=== PATIENT | female | born 1965 | race Caucasian/White ===

== ENCOUNTER 2018-11-26 15:59 | Inpatient (IN) | payer MEDICAID, OTHER ==
[~2018-11-26] VITALS: Ht 152.4 cm; Wt 61.2 kg
[~2018-11-26 15:59] MED LIST: GLIP5TAB13 PO; METF-1022 PO
[2018-11-26] MEDS ORDERED: ACETAMINOPHEN 325 MG TAB PO ONE (16:55)
[2018-11-26] MEDS ORDERED: ACETAMINOPHEN EXTRA STRENGTH 500 MG TAB ONE (16:59)
[2018-11-26] MEDS ORDERED: ACETAMINOPHEN EXTRA STRENGTH 500 MG TAB PO ONE (17:00)
[2018-11-26] MEDS ORDERED: NACL 0.9% 1,000 ML IV SCH ×2 (17:46→18:46)
[2018-11-26] MEDS ORDERED: KETOROLAC 30 MG/ML VIAL IVP ONE (17:50)
--- NOTE | 2018-11-26 17:51 | NUR ---
PATIENT PRESENTS TO ED WITH BROUGHT IN BY SONS C/O GENERAL MALAISE, HYPERGLYCEMIA, FEVER, BODYACHES X LAST NIGHT ADDS LOOSE STOOLS X 3 DAYS .; SKIN IS PINK/WARM/DRY; AAOX4 WITH EVEN AND STEADY GAIT; LUNGS CLEAR BL; HR EVEN AND REGULAR; PT DENIES ANY, CP, SOB, OR COUGH AT THIS TIME; PATIENT STATES PAIN OF 8/10 AT THIS TIME; VSS; PATIENT POSITIONED FOR COMFORT; HOB ELEVATED; BEDRAILS UP X2; BED DOWN. ER MD MADE AWARE OF PT STATUS.
--- NOTE | 2018-11-26 17:52 | NUR ---
X-RAY AT BEDSIDE
[2018-11-26 17:58] LABS: BILIRUBIN,URINE NEGATIVE (NEGATIVE); BLOOD, URINE 2+ (NEGATIVE); COLOR,URINE YELLOW (YELLOW); LEUKOCYTE ESTERASE ,URINE TRACE (NEGATIVE); NITRITE, URINE NEGATIVE (NEGATIVE); UGLUCOSE 3+ (NEGATIVE)
[2018-11-26 18:04] LABS: APPEARANCE,URINE HAZY (CLEAR)
[2018-11-26 18:06] LABS: RBC,URINE 3-10 (FEW) /HPF (0-5); WBC,URINE 80-100 /HPF (0-5)
[2018-11-26 18:08] LABS: BASOPHILS % (AUTO) 0.5 % (0.0-2.0); EOSINOPHILS % (AUTO) 0.3 % (0.0-4.0); HEMATOCRIT 33.7 % (36-48); HEMOGLOBIN 11.2 g/dL (12.0-16.0); LYMPHOCYTES # (AUTO) 0.7 K/uL (2.5-16.5); LYMPHOCYTES % (AUTO) 7.2 % (20.5-51.1); MEAN CORPUSCULAR HEMOGLOBIN 29 pg (27-31); MEAN CORPUSCULAR HGB CONC 33 g/dL (33-37); MEAN CORPUSCULAR VOLUME 88.4 fL (80-94); MONOCYTES # (AUTO) 0.5 K/uL (0.8-1.0); MONOCYTES % (AUTO) 5.6 % (1.7-9.3); NEUTROPHILS # (AUTO) 8.3 K/uL (1.8-7.7); NEUTROPHILS % (AUTO) 86.4 % (42.2-75.2); PLATELET COUNT (AUTO) 172 K/uL (140-450); RED BLOOD CELL COUNT(AUTO) 3.81 MIL/uL (4.20-5.40); RED CELL DISTRIBUTION WIDTH 13.7 % (11.6-13.7); WHITE BLOOD COUNT (AUTO) 9.6 K/uL (4.8-10.8)
[2018-11-26] MEDS ORDERED: cefTRIAXone 1,000 MG in LIDOCAINE MPF 1% - 5 mL VIAL 2.1 ML IM ONE (18:15)
[2018-11-26 18:39] LABS: ALBUMIN 3.1 g/dL (3.4-5.0); ANION GAP 13.9 (8-16); CARBON DIOXIDE 23.3 mmol/L (21-32); CREATININE 1.4 mg/dL (0.6-1.3); POTASSIUM 4.2 mmol/L (3.5-5.1); TOTAL BILIRUBIN 0.6 mg/dL (0.0-1.0)
[2018-11-26] MEDS ORDERED: ALBUTEROL 0.083% 2.5 MG/3 ML NEBU INH PRN (18:50)
[2018-11-26] MEDS ORDERED: DEXTROSE 50% 50 ML SYR IVP PRN (18:50)
[2018-11-26] MEDS ORDERED: MORPHINE SULFATE 2 MG/ML SYR IVP PRN (18:50)
[2018-11-26] MEDS ORDERED: OSELTAMIVIR PHOSPHATE 75 MG CAP PO ONE (18:50)
[2018-11-26] MEDS ORDERED: INSULIN LANTUS 100 UNITS/ML 10 ML VIAL SUBQ ONE (18:55)
[2018-11-26] MEDS: NACL 0.9% 1,000 ML IV SCH (19:10)
--- NOTE | 2018-11-26 19:15 | NUR ---
Patient will be admitted to care of Dr Rogers. Admited to MST. Will go to room 114. Belongings list completed. Report to DAMIAN ROME.
[2018-11-26 19:30] VITALS: BP 98/80
[2018-11-26] MEDS ORDERED: NACL 0.9% 1,000 ML IV ONE (19:30)
[2018-11-26] MEDS ORDERED: INSULIN REGULAR, HUMAN 100 UNIT/ML VIAL IVP ONE (19:30)
--- NOTE | 2018-11-26 19:30 | NUR ---
RECEIVED REPORT FROM WILD FERREIRA, PATIENT AMBULATORY, SKIN INTACT, LUNG SOUNDS CLEAR, AAOX4, PRIMARILY [facility] SPEAKING. SON AT BEDSIDE, IV IN LEFT FA 18 G SL. MRSA SCREEN COLLECTED AND SENT TO LAB, V/S TAKEN NOTED BP 98/80 HR 90. EXPLAINED OF NEEDED URINE SAMPLE FOR NA LEVEL, PLACED CONTAINER AT BEDSIDE. CALL LIGHT WITHIN REACH, EXPLAINED PLAN OF CARE, WILL CALL DR FOR ORDERS REGARDING BG 506.
--- NOTE | 2018-11-26 19:35 | NUR ---
CALLED ER SPOKE WITH JESSICA, ASKED IF PATIENT GOT INSULIN FOR BG 507. THEY STATED NO PATIENT DID NOT GET ANYTHING FOR BG.
--- NOTE | 2018-11-26 20:00 | NUR ---
BG 472 GAVE 10 UNITS LANTUS AND 10 UNITS REGULAR INSULIN.
[2018-11-26] MEDS ORDERED: cefTRIAXone 1,000 MG VIAL ONE (20:36)
[2018-11-26] MEDS: BLOOD GLUCOSE MONITORING 1 DEV DEV FS SCH (20:49)
--- NOTE | 2018-11-26 20:50 | NUR ---
STARTED IVF NS AT 75 ML/HR AND ROCEPHIN. BLOOD GLUCOSE 453 WILL CALL FOR ORDERS.
[2018-11-26 21:42] LABS: ANION GAP 13.1 (8-16); CARBON DIOXIDE 22.5 mmol/L (21-32); CREATININE 1.3 mg/dL (0.6-1.3); POTASSIUM 3.6 mmol/L (3.5-5.1)
--- NOTE | 2018-11-26 21:45 | NUR ---
CALL FROM LAB BG 463 WILL NOTIFY FOR ORDERS.
--- NOTE | 2018-11-26 22:01 | NUR ---
CALLED DR HOOD CALL BACK FROM DR GUNDERSON NOTIFIED OF BG 453, ORDERS FOR 10 U LANTUS AND 6 U REGULAR INSULIN, PUT IN ORDERS, RECHECKED BG 395 GAVE MEDICATIONS ACCORDING TO MD ORDER.
[2018-11-26] MEDS ORDERED: INSULIN LANTUS 100 UNITS/ML 10 ML VIAL SUBQ SCH (22:30)
[2018-11-26] MEDS ORDERED: INSULIN REGULAR, HUMAN 100 UNIT/ML VIAL SUBQ SCH (22:30)
--- NOTE | 2018-11-26 22:39 | NUR ---
REASSESSED BG 366. WILL CONTINUE TO MONITOR.
--- NOTE | 2018-11-26 22:40 | NUR ---
ADMISSION QUESTIONS COMPLETED, USED WAREHOUSE ASSISTANT ALEX #[id number].
[2018-11-27] VITALS: BP 105/86
--- NOTE | 2018-11-27 00:30 | NUR ---
V/S TAKEN BP 105/86 WILL CONTINUE TO MONITOR.
--- NOTE | 2018-11-27 03:15 | NUR ---
PATIENT SLEEPING IN BED NO SIGNS OF DISTRESS, WILL CONTINUE TO MONITOR.
[2018-11-27 03:48] VITALS: BP 110/65
--- NOTE | 2018-11-27 04:26 | NUR ---
PATIENT VOMITED X [address] ON MONITOR AT 138, CALLED DR GUNDERSON ORDER FOR ZOFRAN AND 1 L NS FLUID BOLUS.
[2018-11-27] MEDS ORDERED: NACL 0.9% 1,000 ML IV SCH (04:30)
[2018-11-27] MEDS ORDERED: ONDANSETRON 4 MG/2 ML VIAL IVP PRN ×2 (04:30→04:45)
[2018-11-27] MEDS ORDERED: ONDANSETRON 4 MG/2 ML VIAL ONE (04:43)
--- NOTE | 2018-11-27 04:46 | NUR ---
STARTED IVF BOLUS OF NS AND GAVE ZOFRAN. REMINDED PATIENT OF NEEDED URINE SAMPLE. HAT IN BATHROOM.
[2018-11-27] MEDS: INSULIN LISPRO SLIDING SCALE 100 UNITS/ML VIAL SUBQ PRN ×3 (05:32→21:07)
[2018-11-27 06:37] LABS: BASOPHILS % (AUTO) 0.4 % (0.0-2.0); EOSINOPHILS # (AUTO) 0.1 K/uL (0-0.4); EOSINOPHILS % (AUTO) 0.9 % (0.0-4.0); HEMATOCRIT 31.6 % (36-48); HEMOGLOBIN 10.7 g/dL (12.0-16.0); LYMPHOCYTES # (AUTO) 0.8 K/uL (2.5-16.5); LYMPHOCYTES % (AUTO) 9.6 % (20.5-51.1); MEAN CORPUSCULAR HEMOGLOBIN 30 pg (27-31); MEAN CORPUSCULAR HGB CONC 34 g/dL (33-37); MEAN CORPUSCULAR VOLUME 88.3 fL (80-94); MONOCYTES # (AUTO) 0.6 K/uL (0.8-1.0); MONOCYTES % (AUTO) 6.7 % (1.7-9.3); NEUTROPHILS % (AUTO) 82.4 % (42.2-75.2); PLATELET COUNT (AUTO) 148 K/uL (140-450); RED BLOOD CELL COUNT(AUTO) 3.57 MIL/uL (4.20-5.40); WHITE BLOOD COUNT (AUTO) 8.5 K/uL (4.8-10.8)
[2018-11-27] MEDS: BLOOD GLUCOSE MONITORING 1 DEV DEV FS SCH ×4 (06:40→21:03)
--- NOTE | 2018-11-27 06:41 | NUR ---
BLOOD GLUCOSE 260 GAVE 4 UNITS
[2018-11-27 07:18] LABS: ALBUMIN 2.8 g/dL (3.4-5.0); ANION GAP 14.8 (8-16); CARBON DIOXIDE 21.4 mmol/L (21-32); CREATININE 0.9 mg/dL (0.6-1.3); MAGNESIUM 1.3 mg/dL (1.8-2.4); POTASSIUM 4.2 mmol/L (3.5-5.1); TOTAL BILIRUBIN 0.5 mg/dL (0.0-1.0)
--- NOTE | 2018-11-27 07:36 | NUR ---
ENDORSED PATIENT TO DAY SHIFT NURSE, PATIENT STABLE.
[2018-11-27 08:00] VITALS: BP 124/60
--- NOTE | 2018-11-27 08:12 | NUR ---
NOTIFIED DR HOOD ABOUT PATIENT'S FEVER. ORDERS RECEIVED
[2018-11-27] MEDS: NACL 0.9% 1,000 ML IV SCH ×2 (08:30→23:51)
--- NOTE | 2018-11-27 08:39 | NUR ---
PATIENT HAS BEEN SCREENED AND CATEGORIZED HIGH NUTRITION RISK. PATIENT WILL BE SEEN WITHIN 1-2 DAYS OF ADMISSION. 11/27/18-11/28/[address]
[2018-11-27] MEDS: ACETAMINOPHEN 325 MG TAB PO PRN (08:45)
[2018-11-27] MEDS ORDERED: ACETAMINOPHEN 325 MG TAB ONE (08:48)
[2018-11-27] MEDS: ENOXAPARIN 40 MG/0.4 ML SYR SUBQ SCH (08:49)
[2018-11-27] MEDS ORDERED: MAG SULF 2000 MG/WATER PREMIX 50 ML IV SCH (09:00)
--- NOTE | 2018-11-27 09:22 | NUR ---
CM NOTE PER MACY OF [facility] PH# [phone], DR. [facility] WILL NOT BE BACK IN THE CLINIC UNTIL LATE NEXT WEEK AND THE PATIENT IS BEING SCHEDULED TO BE SEEN ON THE EARLIEST AVAILABLE SCHEDULE FOR OUTPATIENT FOLLOW UP AT THIS TIME WHICH IS ON JANUARY 29, 2019 3:30 PM AT THE CLINIC AT [address] [place] [address] [place] [address]. I INFORMED MACY THAT THIS IS AN OUTPATIENT FOLLOW UP AFTER A HOSPITAL ADMISSION. PER MACY, SHE WILL ASK DR. KIRBY NEXT WEEK IF HE COULD SEE THE PATIENT ON AN EARLIER SCHEDULE AND IF THIS IS POSSIBLE, SHE WILL CALL THE PATIENT TO INFORM HER OF THE EARLIER SCHEDULE. I GAVE THE PATIENT A COPY OF HER OUTPATIENT FOLLOW UP SCHEDULE.
--- NOTE | 2018-11-27 10:30 | NUR ---
MG RIDER ADMINISTERED DURING DOWNTIME. ADMINISTRATION RECORDED ON DOWN TIME SHEET
[2018-11-27 12:00] VITALS: BP 104/53
--- NOTE | 2018-11-27 16:00 | NUR ---
PT AWAKE IN BED, WATCHING TELEVISION. NO S/S OF DISTRESS NOTED
[2018-11-27 16:54] VITALS: BP 140/69
--- NOTE | 2018-11-27 19:30 | NUR ---
PT REPORT GIVEN AT BEDSIDE. PATIENT ENDORSED IN STABLE CONDITION
--- NOTE | 2018-11-27 19:55 | NUR ---
RECEIVED PATIENT FROM DAY SHIFT NURSE FOR CONTINUITY OF CARE. PATIENT IS AWAKE, ALERT, RESPIRATION EVEN UNLABORED ON ROOM AIR. DENIES PAIN. SKIN IS WARM AND DRY. IV PATENT AND INTACT. PLAN OF CARE WAS DISCUSSED. ALL SAFETY MEASURE IN PLACE. DROPLET PRECAUTION IN PLACE AND MAINTAIN. CALL LIGHT WITHIN REACH. BED IS AT LOW POSITION. WILL CONTINUE TO MONITOR.
[2018-11-27 20:00] VITALS: BP 152/74
--- NOTE | 2018-11-27 20:00 | NUR ---
PATIENT IS AWAKE, ALERT, RESPIRATION EVEN UNLABORED ON ROOM AIR. INITIAL ASSESSMENT DONE. VITALS STABLE. MEDS WERE GIVEN PER ORDER. CALL LIGHT WITHIN REACH. WILL CONTINUE TO MONITOR.
--- NOTE | 2018-11-27 21:45 | NUR ---
PATIENT WAS AWAKE, ALERT, RESPIRATION EVEN UNLABORED ON ROOM AIR. COMPLAINED OF NAUSEA. PRN ZOFRAN ADMINISTERED. WILL CONTINUE TO MONITOR.
--- NOTE | 2018-11-27 22:30 | NUR ---
REASSESSED PATIENT NO MORE COMPLAINED OF NAUSEA PRN ZOFRAN MED WAS EFFECTIVE. WILL CONTINUE TO MONITOR.
[2018-11-28] VITALS: BP 108/50
--- NOTE | 2018-11-28 01:00 | NUR ---
PATIENT HAD A FEVER OF 101.[address] RECHECKED TEMPERATURE 101. ADMINISTERED PRN TYLENOL. WILL CONTINUE TO MONITOR.
[2018-11-28] MEDS: ACETAMINOPHEN 325 MG TAB PO PRN (01:05)
--- NOTE | 2018-11-28 02:00 | NUR ---
RECHECKED PATIENT TEMPERATURE NOW IS AT 98.1. WILL CONTINUE TO MONITOR.
--- NOTE | 2018-11-28 03:30 | NUR ---
PATIENT SLEEPING COMFORTABLY RESPIRATION EVEN UNLABORED ON ROOM AIR. NO FEVER. WILL CONTINUE TO MONITOR
[2018-11-28 04:00] VITALS: BP 120/67
--- NOTE | 2018-11-28 05:00 | NUR ---
PATIENT SLEEPING NO SIGNS OF DISTRESS. WILL CONTINUE TO MONITOR
[2018-11-28] MEDS: INSULIN LISPRO SLIDING SCALE 100 UNITS/ML VIAL SUBQ PRN (06:33)
[2018-11-28] MEDS: BLOOD GLUCOSE MONITORING 1 DEV DEV FS SCH (06:34)
--- NOTE | 2018-11-28 07:28 | NUR ---
ENDORSED PATIENT TO DAY SHIFT NURSE FOR CONTINUITY OF CARE. PATIENT IS STABLE AT THIS TIME.
--- NOTE | 2018-11-28 07:28 | NUR ---
RECEIVED PATIENT REPORT AT BEDSIDE. PATIENT IS AWAKE, ALERT AND ORIENTED. NO S/S OF DISTRESS. PT ON ROOM AIR NO SOB. PT ON TELE MONITORING. BED LOWERED WITH CALL LIGHT WITHIN REACH. WILL CONTINUE TO MONITOR
[2018-11-28 07:34] VITALS: BP 124/64
[2018-11-28 08:14] LABS: ANION GAP 11.1 (8-16); CARBON DIOXIDE 26.6 mmol/L (21-32); CREATININE 0.8 mg/dL (0.6-1.3); POTASSIUM 3.7 mmol/L (3.5-5.1)
[2018-11-28] MEDS: ENOXAPARIN 40 MG/0.4 ML SYR SUBQ SCH (09:49)
[2018-11-28] MEDS ORDERED: TAM75 PO (09:59)
[2018-11-28] MEDS ORDERED: CEPH250C16 PO (10:10)
[2018-11-28] MEDS: NACL 0.9% 1,000 ML IV SCH (11:10)
[2018-11-28 12:00] VITALS: BP 141/77
--- NOTE | 2018-11-28 12:00 | NUR ---
PATIENT DISCHARGED TO HOME. DISCHARGE INSTRUCTIONS AND DISCHARGE PRESCRIPTIONS GIVEN. BUX PHONE USED ID#[id number]. PATIENT VERBALIZED UNDERSTANDING. IV LINE DISCONTINUED. PATIENT LEFT WITH ALL HIS BELONGINGS AND DISCHARGE PAPERS. PATIENT LEFT IN STABLE CONDITION
[2018-11-28] MEDS ORDERED: OSELTAMIVIR PHOSPHATE 75 MG CAP PO SCH (21:00)
== END 2018-11-28 12:00 | disposition home or self-care (01) | DRG 463 ==
LOC: MED 15:59 → MTU 18:51
PROVIDERS: ADMIT Hospitalist; ATTEND Hospitalist
DX: N39.0 Urinary tract infection, site not specified (principal); E11.65 Type 2 diabetes mellitus with hyperglycemia; E87.1 Hypo-osmolality and hyponatremia; E44.1 Mild protein-calorie malnutrition; E83.42 Hypomagnesemia; J11.1 Influenza due to unidentified influenza virus with other respiratory manifestations; Z79.84 Long term (current) use of oral hypoglycemic drugs; Z98.42 Cataract extraction status, left eye; Z98.41 Cataract extraction status, right eye
CPT/HCPCS: 36415; 71045; 80048; 80053; 81001; 82948; 83605; 83735; 83930; 85025; 87040; 87081; 87086; 87186; 87804; 93005; 96361; 96372; 96374; 99285; J0696; J1650; J1815; J1885; J2001; J2405; J3475; J7030; J7060; Q0092

== ENCOUNTER 2019-02-03 18:48 | Inpatient (IN) | payer OTHER ==
[~2019-02-03] VITALS: Ht 147.3 cm; Wt 59.4 kg
[~2019-02-03 18:48] MED LIST changes: +CEPH250C16 PO; +TAM75 PO
[2019-02-03 19:03] VITALS: BP 113/55
--- NOTE | 2019-02-03 19:10 | NUR ---
BIB SON. PT AAO X4. PER SON, PT HAS N/V/D SINCE LAST NIGHT. STATES SHE HAS NOT EATEN SINCE LAST NIGHT. HAS VOMITED 2 TIMES AND HAD 3 EPISODES OF DIAHRREA TODAY. GENERALIZED WEAKNESS. PT DENIES DIZZINESS, SOB. HOB UP BED SIDE RAILS UP X1. ON LOW BED POSITION, LOCKED. ER MADE AWARE OF PT STATUS.
[2019-02-03] MEDS ORDERED: KETOROLAC 30 MG/ML VIAL IVP ONE (19:30)
[2019-02-03] MEDS ORDERED: NACL 0.9% 1,000 ML IV ONE ×2 (19:30→21:00)
[2019-02-03] MEDS ORDERED: ONDANSETRON 4 MG/2 ML VIAL IVP ONE (19:30)
--- NOTE | 2019-02-03 19:31 | NUR ---
Alie puentes in ED - 02/03/[address] at [address] MUSTAFA AT BEDSIDE FOR PT EVALUATION
--- NOTE | 2019-02-03 19:31 | NUR ---
DR DE LA CRUZ AT BEDSIDE FOR PT EVALUATION
[2019-02-03 19:53] LABS: BASOPHILS # (AUTO) 0.1 K/uL (0.00-0.22); BASOPHILS % (AUTO) 0.7 % (0.0-2.0); EOSINOPHILS % (AUTO) 0.1 % (0.0-4.0); HEMATOCRIT 31.6 % (36-48); HEMOGLOBIN 10.7 g/dL (12.0-16.0); LYMPHOCYTES # (AUTO) 0.7 K/uL (2.5-16.5); LYMPHOCYTES % (AUTO) 8.4 % (20.5-51.1); MEAN CORPUSCULAR HEMOGLOBIN 29 pg (27-31); MEAN CORPUSCULAR HGB CONC 34 g/dL (33-37); MEAN CORPUSCULAR VOLUME 86.1 fL (80-94); MONOCYTES # (AUTO) 0.6 K/uL (0.8-1.0); MONOCYTES % (AUTO) 6.8 % (1.7-9.3); NEUTROPHILS # (AUTO) 7.2 K/uL (1.8-7.7); PLATELET COUNT (AUTO) 111 K/uL (140-450); RED BLOOD CELL COUNT(AUTO) 3.67 MIL/uL (4.20-5.40); RED CELL DISTRIBUTION WIDTH 13.6 % (11.6-13.7); WHITE BLOOD COUNT (AUTO) 8.5 K/uL (4.8-10.8)
[2019-02-03 20:03] LABS: ANION GAP 15.1 (8-16); CARBON DIOXIDE 24.9 mmol/L (21-32); CREATININE 1.1 mg/dL (0.6-1.3)
[2019-02-03 20:08] LABS: ALBUMIN 3.1 g/dL (3.4-5.0); TOTAL BILIRUBIN 1.2 mg/dL (0.0-1.0)
--- NOTE | 2019-02-03 20:16 | NUR ---
PT TAKEN TO CT VIA BED BY COMMUNICATIONS AGENT
--- NOTE | 2019-02-03 20:28 | NUR ---
PT TAKEN BACK FROM CT VIA BED BY TERMITE TREATER.
[2019-02-03 20:43] LABS: APPEARANCE,URINE CLEAR (CLEAR); BILIRUBIN,URINE NEGATIVE (NEGATIVE); BLOOD, URINE 2+ (NEGATIVE); COLOR,URINE YELLOW (YELLOW); LEUKOCYTE ESTERASE ,URINE TRACE (NEGATIVE); NITRITE, URINE NEGATIVE (NEGATIVE); UGLUCOSE 3+ (NEGATIVE)
[2019-02-03 20:58] LABS: WBC,URINE 80-100 /HPF (0-5)
[2019-02-03] MEDS ORDERED: cefTRIAXone 1,000 MG VIAL ONE (21:41)
[2019-02-03] MEDS ORDERED: HYDROcodone/APAP 5/325 MG 1 TAB TAB PO PRN (22:10)
[2019-02-03] MEDS ORDERED: DEXTROSE 50% 50 ML SYR IVP PRN (22:10)
[2019-02-03] MEDS ORDERED: MORPHINE SULFATE 4 MG/ML SYR IVP PRN (22:10)
--- NOTE | 2019-02-03 22:35 | NUR ---
RECEIVED PT FROM ER VIA [place], AWAKE ALERT ORIENTED X 4. ABLE TO AMBULATE FROM BED TO [facility], STEADY GAIT. PT W/ IVF SITE G 20 LEFT AC , PATENT AND INTACT, NO IV RUNNING AT THIS TIME. MRSA SWAB DONE. SKIN ASSESSMENT DONE. PLACED IN LOW BED POSITION, CALL LIGHT W/IN EASY REACH ORIENTED TO UNIT. WILL CONTINUE TO MONITOR
--- NOTE | 2019-02-03 22:38 | NUR ---
Patient will be admitted to care of DR MULLER. Admited to MED/SURG. Will go to room 120-B. Belongings list completed. Report to WILD HEARD.
[2019-02-03] MEDS: NACL 0.9% 1,000 ML IV SCH (23:54)
--- NOTE | 2019-02-04 | NUR ---
CALLED ANALYST HIRAM QUINTANILLA TO INTERPRET TO PATIENT # [phone]. FOR HISTORY AND PHYSICAL ASSESSMENT AND INTERVIEW. PT COOPERATIVE.
--- NOTE | 2019-02-04 00:50 | NUR ---
ORDERS CARRIED OUT FOR ADMISSION. PT ASLEEP IN BED RIGHT NOW, PLACED IN A COMFORTABLE POSITION
--- NOTE | 2019-02-04 01:41 | NUR ---
PT VOMITED 1 X WILL CONTINUE TO MONITOR. WILL GIVE ZOFRAN
[2019-02-04] MEDS: ONDANSETRON 4 MG/2 ML VIAL IVP PRN ×2 (01:43→22:07)
[2019-02-04] MEDS: ACETAMINOPHEN 325 MG TAB PO PRN ×3 (01:52→18:52)
--- NOTE | 2019-02-04 02:00 | NUR ---
PT AFEBRILE T= 103.4 ADMINISTERED TYLENOL PRN FOR FEVER Addendum: 02/04/19 at 0207 by Claire Jensen RN PT FEBRILE 103. 4 INCREASED TEMP
[2019-02-04 04:00] VITALS: BP 101/48
[2019-02-04] MEDS: BLOOD GLUCOSE MONITORING 1 DEV DEV FS SCH ×4 (05:35→21:00)
[2019-02-04] MEDS: INSULIN LISPRO SLIDING SCALE 100 UNITS/ML VIAL SUBQ PRN ×4 (06:23→22:02)
[2019-02-04 06:49] LABS: BASOPHILS % (AUTO) 0.4 % (0.0-2.0); HEMATOCRIT 28.7 % (36-48); HEMOGLOBIN 9.6 g/dL (12.0-16.0); LYMPHOCYTES # (AUTO) 0.5 K/uL (2.5-16.5); MEAN CORPUSCULAR HEMOGLOBIN 29 pg (27-31); MEAN CORPUSCULAR HGB CONC 34 g/dL (33-37); MONOCYTES # (AUTO) 0.3 K/uL (0.8-1.0); MONOCYTES % (AUTO) 5.2 % (1.7-9.3); NEUTROPHILS # (AUTO) 5.7 K/uL (1.8-7.7); NEUTROPHILS % (AUTO) 86.4 % (42.2-75.2); PLATELET COUNT (AUTO) 82 K/uL (140-450); RED CELL DISTRIBUTION WIDTH 13.9 % (11.6-13.7); WHITE BLOOD COUNT (AUTO) 6.6 K/uL (4.8-10.8)
--- NOTE | 2019-02-04 07:03 | NUR ---
99.7 T AFEBRILE. NO VOMITING NOTED; NO CHILLS , NO NAUSEA. WILL ENDORSE TO NEXT SHIFT FOR CONTINUITY OF CARE
[2019-02-04 07:46] LABS: ANION GAP 11.2 (8-16); CARBON DIOXIDE 22.5 mmol/L (21-32); POTASSIUM 3.7 mmol/L (3.5-5.1)
[2019-02-04 07:48] LABS: MAGNESIUM 1.3 mg/dL (1.8-2.4); PHOSPHORUS 2.6 mg/dL (2.5-4.9)
[2019-02-04 08:00] VITALS: BP 105/53
[2019-02-04] MEDS ORDERED: glipiZIDE 5 MG TAB PO SCH (08:00)
--- NOTE | 2019-02-04 08:33 | NUR ---
PATIENT HAS BEEN SCREENED AND CATEGORIZED HIGH NUTRITION RISK. PATIENT WILL BE SEEN WITHIN 1-2 DAYS OF ADMISSION. 02/04/19-02/05/[address]
[2019-02-04] MEDS ORDERED: GLIPIZIDE 5 MG PO SCH (09:00)
[2019-02-04] MEDS ORDERED: METFORMIN HCL 1000 MG PO SCH (09:00)
[2019-02-04] MEDS: ENOXAPARIN 40 MG/0.4 ML SYR SUBQ SCH (09:00)
[2019-02-04] MEDS: metFORMIN 500 MG TAB PO SCH ×2 (09:17→18:17)
--- NOTE | 2019-02-04 09:27 | NUR ---
HELD ENOXAPARIN PLATELETS 82
--- NOTE | 2019-02-04 10:40 | NUR ---
FEVER 101.3 TYLENOL GIVEN AT THIS TIME
[2019-02-04] MEDS: NACL 0.9% 1,000 ML IV SCH ×2 (10:44→18:18)
--- NOTE | 2019-02-04 11:30 | NUR ---
VERBAL ORDER DR. NEWELL CHEM7, CBC IN AM 02/05/2019
--- NOTE | 2019-02-04 13:11 | NUR ---
PT LYING IN BED SLEEPING. RESPIRATIONS EVEN AND UNLABORED. BED IN LOW POSITION. CALL LIGHT AT BEDSIDE. WILL CONTINUE TO MONITOR.
--- NOTE | 2019-02-04 14:29 | NUR ---
CALLED OFFICE OF DR HINTON [phone] SPOKE TO HARLEY, FOLLOW UP APPOINTMENT MADE ON 02/28/19 AT 1130AM @ [phone] [facility] [id number] [facility], [phone]. COPY OF APPOINTMENT GIVEN TO PATIENT. PRIMARY NURSE ALEX ROME MADE AWARE.
--- NOTE | 2019-02-04 14:50 | NUR ---
02/04/19 RD INITIAL ASSESSMENT COMPLETED PLEASE REFER TO NUTRITION ASSESSMENT UNDER CARE ACTIVITY FOR ESTIMATED NUTRITIONAL NEEDS. 1. CONTINUE CCHO 60 GM DIET TOLERATED 2. RD PROVIDED NUTRITION EDUCATION ON CARBOHYDRATE COUNTING 3. RD TO FOLLOW-UP 3-5 DAYS, MODERATE RISK GRISELDA ALLEN, RD
[2019-02-04 16:00] VITALS: BP 129/79
--- NOTE | 2019-02-04 16:24 | NUR ---
PT LYING IN BED WITH FAMILY AT BEDSIDE. RESPIRATIONS EVEN AND UNLABORED. BED IN LOW POSITION. CALL LIGHT AT BEDSIDE. WILL CONTINUE TO MONITOR.
--- NOTE | 2019-02-04 18:20 | NUR ---
FEVER 101.3 TYLENOL WAS GIVEN AT THIS TIME
--- NOTE | 2019-02-04 19:25 | NUR ---
GAVE REPORT TO BILLING ADJUDICATOR NURSE FOR CONTINUITY OF CARE. PT IN STABLE CONDITION.
[2019-02-04 20:00] VITALS: BP 110/55
--- NOTE | 2019-02-04 20:00 | NUR ---
Patient's Plan of Care was discussed and reviewed with RANCH SUPERVISOR: Olya PRICE
[2019-02-04 21:34] LABS: ANION GAP 11.3 (8-16); CARBON DIOXIDE 25.4 mmol/L (21-32); CREATININE 0.9 mg/dL (0.6-1.3); POTASSIUM 3.7 mmol/L (3.5-5.1)
--- NOTE | 2019-02-04 22:07 | NUR ---
NAUSEATED, MEDICATED WITH ZOFRAN 4 MG. IVP BY WILD LYONS. SON AT THE BEDSIDE FOR SHORT VISIT.
--- NOTE | 2019-02-04 23:07 | NUR ---
NO NAUSEA/VOMITING NOTED. RESTING IN BED COMFORTABLY.
[2019-02-05] VITALS: BP 112/54
[2019-02-05 04:00] VITALS: BP 108/56
[2019-02-05] MEDS: NACL 0.9% 1,000 ML IV SCH (04:08)
[2019-02-05] MEDS: BLOOD GLUCOSE MONITORING 1 DEV DEV FS SCH ×2 (06:13→11:30)
[2019-02-05] MEDS: INSULIN LISPRO SLIDING SCALE 100 UNITS/ML VIAL SUBQ PRN ×2 (06:15→13:09)
[2019-02-05] MEDS: ACETAMINOPHEN 325 MG TAB PO PRN (06:21)
--- NOTE | 2019-02-05 06:21 | NUR ---
WITH FEVER - 101.2, MEDICATED WITH TYLENOL, COOLING MEASURES GIVEN.
[2019-02-05] MEDS ORDERED: glipiZIDE 5 MG TAB PO SCH (06:30)
[2019-02-05 06:49] LABS: BASOPHILS % (AUTO) 0.4 % (0.0-2.0); EOSINOPHILS % (AUTO) 0.3 % (0.0-4.0); HEMOGLOBIN 9.1 g/dL (12.0-16.0); LYMPHOCYTES % (AUTO) 14.5 % (20.5-51.1); MEAN CORPUSCULAR HEMOGLOBIN 29 pg (27-31); MEAN CORPUSCULAR HGB CONC 34 g/dL (33-37); MEAN CORPUSCULAR VOLUME 86.7 fL (80-94); MONOCYTES # (AUTO) 0.6 K/uL (0.8-1.0); MONOCYTES % (AUTO) 8.5 % (1.7-9.3); NEUTROPHILS # (AUTO) 5.1 K/uL (1.8-7.7); NEUTROPHILS % (AUTO) 76.3 % (42.2-75.2); PLATELET COUNT (AUTO) 77 K/uL (140-450); RED BLOOD CELL COUNT(AUTO) 3.11 MIL/uL (4.20-5.40); RED CELL DISTRIBUTION WIDTH 13.5 % (11.6-13.7); WHITE BLOOD COUNT (AUTO) 6.7 K/uL (4.8-10.8)
[2019-02-05 07:38] LABS: MAGNESIUM 1.5 mg/dL (1.8-2.4); PHOSPHORUS 1.5 mg/dL (2.5-4.9)
[2019-02-05 07:39] LABS: ANION GAP 10.1 (8-16); CARBON DIOXIDE 23.8 mmol/L (21-32); CREATININE 0.7 mg/dL (0.6-1.3); POTASSIUM 3.9 mmol/L (3.5-5.1)
[2019-02-05 08:00] VITALS: BP 108/48
[2019-02-05] MEDS: ENOXAPARIN 40 MG/0.4 ML SYR SUBQ SCH (09:00)
[2019-02-05] MEDS: metFORMIN 500 MG TAB PO SCH (09:09)
--- NOTE | 2019-02-05 09:11 | NUR ---
ADMINISTERED MEDS TO PT ORDERED. HELD LEVONOX AT THIS TIME, PLATELET 77. NO DISTRESS NOTED. SITTING ON HER BEDSIDE. WILL CONTINUE TO MONITOR PT.
--- NOTE | 2019-02-05 12:30 | NUR ---
CHECKED ON THE PT. BS RECORDED . PT SLEEPING COMFORTABLY IN HER BED. NO SIGN OF DISTRESS NOTED. WILL CONTINUE TO MONITOR PT.
--- NOTE | 2019-02-05 15:00 | NUR ---
DISCHARGE INSTRUCTION PROVIDED TO PT. DC PACKET AND THE PRESCRIPTION PROVIDED. PT SWTABLE AND WIATING FOR THE RIDE TO GET PICKED UP.
--- NOTE | 2019-02-05 16:00 | NUR ---
PT WENT HOME WITH FAMILY MEMBER. DISCHARGE INSTRUCTION AND THE PRESCRIPTION PROVIDED TO THE PT. PT STABLE, WALKED HERSELF OUT OF HOSPITAL.
== END 2019-02-05 16:00 | disposition home or self-care (01) | DRG 720 ==
LOC: MED 18:48 → MTU 22:10
PROVIDERS: ADMIT Internal Medicine Pulmonary Disease; ATTEND Internal Medicine Pulmonary Disease
DX: A41.9 Sepsis, unspecified organism (principal); E44.1 Mild protein-calorie malnutrition; N10 Acute pyelonephritis; E11.9 Type 2 diabetes mellitus without complications; Z79.84 Long term (current) use of oral hypoglycemic drugs
CPT/HCPCS: 36415; 80048; 80053; 81001; 82948; 83605; 83690; 83735; 84100; 85025; 87040; 87081; 87086; 87186; 96361; 96365; 96375; 99285; J0696; J1650; J1815; J1885; J2405; J7030; J7060

== ENCOUNTER 2019-04-10 08:47 | Inpatient (IN) | payer OTHER ==
[~2019-04-10] VITALS: Ht 149.9 cm; Wt 57.6 kg
[2019-04-10 08:52] VITALS: BP 70/43
--- NOTE | 2019-04-10 09:07 | NUR ---
Patient transferred to bed 2 via wheelchair by tech. RN evaluating patient at bedside.
--- NOTE | 2019-04-10 09:10 | NUR ---
bib son c/o neck pain radiating to shoulers and lower back since yesterday, Pt did not take any medication; nausea, vomiting for 3 times with clear liquid-like vomitus since this morning and night sweats for 3 days; denies bloody emesis. Pt also c/o LLQ pain and vision change, 04/09. BS: 456. DENIES diarrhea and constipation; SKIN IS PINK/WARM/DRY; AAOX4 WITH EVEN AND STEADY GAIT; PT DENIES ANY FEVER, CP, SOB, OR COUGH AT THIS TIME; PT'S VSS; PATIENT POSITIONED FOR COMFORT; HOB ELEVATED; BEDRAILS UP X2; BED DOWN. ER MD MADE AWARE OF PT STATUS. Son is at bedside.
--- NOTE | 2019-04-10 09:10 | NUR ---
Note undone in EDM - 04/10/19 at 0951 by MED bib son c/o neck pain radiating to shoulers and lower back since yesterday, Pt did not take any medication; nausea, vomiting for 3 times with clear liquid-like vomitus since this morning and night sweats for 3 days; denies bloody emesis. Pt also c/o LLQ pain and vision change, -05/10. BS: 456. DENIES diarrhea and constipation; SKIN IS PINK/WARM/DRY; AAOX4 WITH EVEN AND STEADY GAIT; PT DENIES ANY FEVER, CP, SOB, OR COUGH AT THIS TIME; PATIENT STATES PAIN OF 0/10 AT THIS TIME; VSS; PATIENT POSITIONED FOR COMFORT; HOB ELEVATED; BEDRAILS UP X2; BED DOWN. ER MD MADE AWARE OF PT STATUS. Son is at bedside.
[2019-04-10] MEDS ORDERED: NACL 0.9% 1,000 ML IV ONE (09:18)
[2019-04-10] MEDS ORDERED: NACL 0.9% 2,000 ML IV SCH (09:18)
--- NOTE | 2019-04-10 09:18 | NUR ---
Dr. Smith evaluating patient at bedside.
[2019-04-10] MEDS ORDERED: ONDANSETRON 4 MG/2 ML VIAL IVP ONE (09:20)
[2019-04-10 09:53] LABS: BASOPHILS % (AUTO) 0.2 % (0.0-2.0); EOSINOPHILS % (AUTO) 0.1 % (0.0-4.0); HEMATOCRIT 29.5 % (36-48); HEMOGLOBIN 10.1 g/dL (12.0-16.0); LYMPHOCYTES # (AUTO) 0.8 K/uL (2.5-16.5); LYMPHOCYTES % (AUTO) 5.3 % (20.5-51.1); MEAN CORPUSCULAR HEMOGLOBIN 30 pg (27-31); MEAN CORPUSCULAR HGB CONC 34 g/dL (33-37); MEAN CORPUSCULAR VOLUME 86.3 fL (80-94); MONOCYTES # (AUTO) 1.5 K/uL (0.8-1.0); MONOCYTES % (AUTO) 9.8 % (1.7-9.3); NEUTROPHILS # (AUTO) 12.9 K/uL (1.8-7.7); NEUTROPHILS % (AUTO) 84.6 % (42.2-75.2); PLATELET COUNT (AUTO) 148 K/uL (140-450); RED BLOOD CELL COUNT(AUTO) 3.41 MIL/uL (4.20-5.40); RED CELL DISTRIBUTION WIDTH 15.3 % (11.6-13.7); WHITE BLOOD COUNT (AUTO) 15.2 K/uL (4.8-10.8)
[2019-04-10] MEDS ORDERED: INSULIN SUBQ (10:06)
[2019-04-10] MEDS ORDERED: GLIP10TA12 PO (10:06)
[2019-04-10 10:13] LABS: APPEARANCE,URINE HAZY (CLEAR); BILIRUBIN,URINE NEGATIVE (NEGATIVE); BLOOD, URINE TRACE-I (NEGATIVE); COLOR,URINE YELLOW (YELLOW); LEUKOCYTE ESTERASE ,URINE 2+ (NEGATIVE); NITRITE, URINE NEGATIVE (NEGATIVE); UGLUCOSE 3+ (NEGATIVE)
[2019-04-10 10:15] LABS: ACETONE, SERUM NEGATIVE (NEGATIVE)
[2019-04-10 10:19] LABS: ALBUMIN 3.1 g/dL (3.4-5.0); AMYLASE 48 U/L (25-115); ANION GAP 14.8 (8-16); ASPARTATE AMINOTRANSFERASE 12 U/L (15-37); CARBON DIOXIDE 22.5 mmol/L (21-32); CHLORIDE 96 mmol/L (98-107); GFR ARICAN-AMERICAN 33 mL/min (>90); LIPASE 143 U/L (73-393); MAGNESIUM 1.5 mg/dL (1.8-2.4); POTASSIUM 4.3 mmol/L (3.5-5.1); SODIUM SERUM 129 mmol/L (136-145); TOTAL BILIRUBIN 1.1 mg/dL (0.0-1.0); UREA NITROGEN, BLOOD 40 mg/dL (7-18)
[2019-04-10] MEDS ORDERED: INSULIN REGULAR, HUMAN 100 UNIT/ML VIAL IVP ONE (10:20)
[2019-04-10 10:23] LABS: GLUCOSE 446 mg/dL (74-106)
[2019-04-10 10:51] LABS: RBC,URINE 0-5 /HPF (0-5); WBC,URINE 80-100 /HPF (0-5)
[2019-04-10] MEDS ORDERED: LEVOFLOXACIN 500 MG TAB PO ONE (11:05)
[2019-04-10] MEDS ORDERED: PIPERACILLIN/TAZOBACTAM 3.375 GM in DEXTROSE 5% 50 ML IV ONE (11:05)
[2019-04-10] MEDS ORDERED: INSULIN REGULAR, HUMAN 100 UNIT/ML VIAL SUBQ ONE (11:15)
[2019-04-10 11:35] LABS: URIC ACID 5.8 mg/dL (2.6-7.2)
[2019-04-10] MEDS ORDERED: PIPERACILLIN/TAZOBACTAM 3.375 GM VIAL IV ONE (11:35)
[2019-04-10] MEDS ORDERED: DEXTROSE 50% 50 ML SYR IVP PRN (13:25)
[2019-04-10] MEDS ORDERED: HYDROcodone/APAP 5/325 MG 1 TAB TAB PO PRN (13:30)
[2019-04-10] MEDS ORDERED: ALBUTEROL 0.083% 2.5 MG/3 ML NEBU INH PRN (13:30)
[2019-04-10] MEDS ORDERED: MORPHINE SULFATE 4 MG/ML SYR IVP PRN (13:30)
--- NOTE | 2019-04-10 13:40 | NUR ---
Dr. Herrera evaluating patient at bedside.
[2019-04-10 14:05] VITALS: BP 132/57
--- NOTE | 2019-04-10 14:05 | NUR ---
Patient will be admitted to care of HYPERGLYCEMIA, UTI. Admited to TELEMETRY. Will go to room 111A. Belongings list completed. Report to WILD Gutierrez.
[2019-04-10] MEDS: ACETAMINOPHEN 325 MG TAB PO PRN ×2 (14:39→20:18)
--- NOTE | 2019-04-10 14:47 | NUR ---
GAVE TYLENOL DUE TO TEMPERATURE 100.4. PT TOLERATED WELL. WILL CONTINUE TO MONITOR.
[2019-04-10] MEDS: NACL 0.9% 1,000 ML IV SCH (14:50)
[2019-04-10] MEDS: ONDANSETRON 4 MG/2 ML VIAL IVP PRN ×2 (15:06→22:13)
[2019-04-10] MEDS: glipiZIDE 10 MG TAB PO SCH (17:22)
[2019-04-10] MEDS: BLOOD GLUCOSE MONITORING 1 DEV DEV FS SCH ×2 (17:24→20:26)
[2019-04-10] MEDS: INSULIN LISPRO SLIDING SCALE 100 UNITS/ML VIAL SUBQ PRN ×2 (17:24→20:25)
--- NOTE | 2019-04-10 19:30 | NUR ---
RECEIVED BEDSIDE REPORT FROM DAY RN. PT IS AAOX4. ON ROOM AIR RESPIRATIONS ARE EQUAL AND UNLABORED. LUNG SOUNDS ARE CLEAR. PATIENT WITH TWO IV 20G R WRIST SL AND LAC 18 G IVF INFUSING PER ORDERS. PATIENT DENIES PAIN AT THIS TIME. PATIENT WITH FEVER DURING DAY WILL MONITOR. PER NURSE PATIENT AMBULATORY ON STRICT I&O PATIENT IS AWARE. PLAN OF CARE DISCCUSSED WITH PATIENT. CALL LIGHT IS WITHIN REACH. WILL CONTINUE TO MONITOR.
[2019-04-10 20:00] VITALS: BP 132/67
--- NOTE | 2019-04-10 20:18 | NUR ---
PATIENTS VS: 132/67 122HR, 95% RA, DENIES PAIN TEMP 102.8 ORAL. ON COOLING MEASURES AC ON HIGH AND ICE PACK APPLIED. ADMINISTERED TYLENOL PER ORDERS. REMOVED ALL BLANKETS AND CLOTHES PATIENT WITH HOSPITAL GOWN ONLY. CALL LIGHT IS WITHIN REACH. WILL CONTINUE TO MONITOR.
--- NOTE | 2019-04-10 21:30 | NUR ---
TEMP DOWN TO 100.4 COOLING MEASURES REMAIN IN PLACE. WILL CONTINUE TO MONITOR
--- NOTE | 2019-04-10 22:30 | NUR ---
TEMP DOWN TO 99.9 WILL KEEP COOLING MEASURES. AND CONTINUE TO MONITOR. CALL LIGHT IS WITHIN REACH.
[2019-04-11] VITALS: BP 103/49
[2019-04-11] MEDS: NACL 0.9% 1,000 ML IV SCH ×3 (00:05→19:26)
--- NOTE | 2019-04-11 00:15 | NUR ---
VITAL SIGNS ARE WITHIN NORMAL LIMITS. ALL NEEDS MET AT THIS TIME. CALL LIGHT IS WITHIN REACH. WILL CONTINUE TO MONITOR.
--- NOTE | 2019-04-11 02:20 | NUR ---
PATIENT IS SLEEPING IN BED. NO S/S OF DISTRESS.CALL LIGHT IS WITHIN REACH.
[2019-04-11 04:00] VITALS: BP 101/49
--- NOTE | 2019-04-11 04:00 | NUR ---
VITAL SIGNS ARE WITHIN NORMAL LIMITS. NO S/S OF DISTRESS. WILL CONTINUE TO MONITOR.
[2019-04-11] MEDS: BLOOD GLUCOSE MONITORING 1 DEV DEV FS SCH ×4 (06:24→20:36)
[2019-04-11] MEDS: glipiZIDE 10 MG TAB PO SCH ×2 (06:26→17:36)
--- NOTE | 2019-04-11 06:26 | NUR ---
SCHEDULED MEDICATION GIVEN. BG 190 2U OF COVERAGE GIVEN. PATIENT TOLERATED WELL. ALL NEEDS MET AT THIS TIME. WILL CONTINUE TO MONITOR.
[2019-04-11] MEDS: INSULIN LISPRO SLIDING SCALE 100 UNITS/ML VIAL SUBQ PRN ×4 (06:30→20:41)
[2019-04-11 06:50] LABS: BASOPHILS % (AUTO) 0.4 % (0.0-2.0); EOSINOPHILS % (AUTO) 0.1 % (0.0-4.0); HEMATOCRIT 25.6 % (36-48); HEMOGLOBIN 8.7 g/dL (12.0-16.0); LYMPHOCYTES # (AUTO) 0.9 K/uL (2.5-16.5); LYMPHOCYTES % (AUTO) 7.9 % (20.5-51.1); MEAN CORPUSCULAR HEMOGLOBIN 30 pg (27-31); MEAN CORPUSCULAR HGB CONC 34 g/dL (33-37); MEAN CORPUSCULAR VOLUME 87.4 fL (80-94); MONOCYTES # (AUTO) 0.9 K/uL (0.8-1.0); MONOCYTES % (AUTO) 8.5 % (1.7-9.3); NEUTROPHILS # (AUTO) 9.1 K/uL (1.8-7.7); NEUTROPHILS % (AUTO) 83.1 % (42.2-75.2); PLATELET COUNT (AUTO) 114 K/uL (140-450); RED BLOOD CELL COUNT(AUTO) 2.93 MIL/uL (4.20-5.40); RED CELL DISTRIBUTION WIDTH 14.9 % (11.6-13.7)
[2019-04-11 06:54] LABS: ANION GAP 13.6 (8-16); CARBON DIOXIDE 21.5 mmol/L (21-32); CREATININE 1.1 mg/dL (0.6-1.3); MAGNESIUM 1.3 mg/dL (1.8-2.4); PHOSPHORUS 2.6 mg/dL (2.5-4.9); POTASSIUM 4.1 mmol/L (3.5-5.1)
--- NOTE | 2019-04-11 07:12 | NUR ---
GAVE BEDSIDE REPORT TO DAY RN. PT ENDORSED IN STABLE CONDITION.
--- NOTE | 2019-04-11 07:19 | NUR ---
RECEIVED BEDSIDE REPORT FROM ANIMAL ASSISTANT RN. PT IS AAOX4 INDONESIAN SPEAKING. ON ROOM AIR RESPIRATIONS ARE EQUAL AND UNLABORED. LUNG SOUNDS ARE CLEAR. PATIENT WITH TWO IV 18G R WRIST SL AND LAC 18 G IVF INFUSING PER ORDERS. PATIENT DENIES PAIN AT THIS TIME. PATIENT WITH FEVER DURING NIGHT AND WILL CONTINUE TO MONITOR CLOSELY. PER NURSE PATIENT AMBULATORY ON STRICT I&O PATIENT IS AWARE. PLAN OF CARE DISCUSSED WITH PATIENT AND PT VERBALIZED UNDERSTANDING. CALL LIGHT IS WITHIN REACH. WILL MONITOR PT FREQUENTLY.
[2019-04-11 08:00] VITALS: BP 116/60
[2019-04-11] MEDS ORDERED: MAG SULF 2000 MG/WATER PREMIX 50 ML IV SCH (08:00)
--- NOTE | 2019-04-11 08:18 | NUR ---
PATIENT HAS BEEN SCREENED AND CATEGORIZED HIGH NUTRITION RISK. PATIENT WILL BE SEEN WITHIN 1-2 DAYS OF ADMISSION. 04/11/19-04/12/[address]
--- NOTE | 2019-04-11 09:18 | NUR ---
ADMINISTERED MORNING MEDS TO PT. PT TOLERATED WELL. NO COMPLAINTS OF PAIN OR SOB. NO FEVER AT THIS TIME. WILL CONTINUE TO ROUND FREQUENTLY ON PT. BED IN LOWEST POSITION, CALL LIGHT WITHIN REACH.
[2019-04-11] MEDS: ACETAMINOPHEN 325 MG TAB PO PRN ×2 (10:56→20:37)
--- NOTE | 2019-04-11 11:27 | NUR ---
PT RESTING IN BED. PT EXHIBITING SIGNS OF FEVER. HR AND CHILLS/SHIVERING PRESENT. TEMPERATURE CHECKED AND FEVER OF 100.8. TYLENOL GIVEN AND COOLING MEASURES IN PLACE. NOTIFIED. WILL CONTINUE TO MONITOR PT CLOSELY AND CHECK FOR MED EFFECTIVENESS. CALL LIGHT WITHIN REACH, BED IN LOW POSITION.
--- NOTE | 2019-04-11 11:43 | NUR ---
CALLED PT'S PCP DR MIRTA COOPER OFFICE [phone] AND MADE F/U APPOINTMENT FOR APRIL 14Sunday AT 3:30 PM. EXPLAINED TO THE PATIENT THAT F/U DOMINIC WAS MADE AND IF UNABLE TO MAKE IT TO RESCHEDULE IT. PT VERBALIZED UNDERSTANDING.
--- NOTE | 2019-04-11 13:34 | NUR ---
PT SLEEPING IN BED. NO SIGNS OF PAIN OR DISTRESS NOTED. WILL CONTINUE TO ROUND FREQUENTLY ON PT. CALL LIGHT WITHIN REACH, BED IN LOW POSITION.
[2019-04-11 14:08] VITALS: BP 130/47
--- NOTE | 2019-04-11 14:15 | NUR ---
04/11/19 RD INITIAL ASSESSMENT COMPLETED PLEASE REFER TO NUTRITION ASSESSMENT UNDER CARE ACTIVITY FOR ESTIMATED NUTRITIONAL NEEDS. 1. CONTINUE CCHO 60 GM DIET TOLERATED 2. RD PROVIDED DIABETES NUTRITION EDUCATION 3. RD TO FOLLOW-UP 5-7 DAYS, LOW RISK GRISELDA ALLEN RD
--- NOTE | 2019-04-11 15:39 | NUR ---
PT RESTING IN BED WATCHING TV. NO SIGNS OF PAIN, SOB, OR FEVER AT THIS TIME. CALL LIGHT WITHIN REACH, BED IN LOW POSITION.
--- NOTE | 2019-04-11 17:48 | NUR ---
PT RESTING WITH FAMILY AT BEDSIDE. NO COMPLAINTS OF PAIN OR SOB. WILL CONTINUE OT ROUND FREQUENTLY ON PT.
--- NOTE | 2019-04-11 19:35 | NUR ---
ENDORSED PT TO DISTILLERY MANAGER NURSE FOR CONTINUITY OF CARE. PT IN STABLE CONDITION AT THIS TIME.
--- NOTE | 2019-04-11 19:36 | NUR ---
RECEIVED REPORT FROM DAY SHIFT NURSE ZEB-RN AT BEDSIDE. PT RESTING IN BED WITH FAMILY AT BEDSIDE. PT AOX4- BELARUSIAN SPEAKING, ON ROOM AIR WITH LEFT AC #18G RUNNING NS @100ML/HR AND RIGHT WRIST #18G. DISCUSSED PLAN OF CARE AND VERBALIZED UNDERSTANDING. NO S/S OF RESPIRATORY DISTRESS OR DISCOMFORT NOTED AT THIS TIME. BED IN LOWEST POSITION, BED BREAKS ON, BOTH SIDE RAILS UP AND FALL PRECAUTIONS IN PLACE. BEDSIDE TABLE AND CALL LIGHT ARE WITHIN REACH. WILL CONTINUE TO MONITOR.
[2019-04-11 20:00] VITALS: BP 142/71
--- NOTE | 2019-04-11 20:00 | NUR ---
VITAL SIGNS TAKEN AND TOLERATED WELL. BLOOD GLUCOSE 227- WILL ADMINISTER INSULIN COVERAGE. NO S/S OF RESPIRATORY DISTRESS OR DISCOMFORT NOTED AT THIS TIME. WILL CONTINUE TO MONITOR.
--- NOTE | 2019-04-11 20:41 | NUR ---
SCHEDULED MEDICATION HEPARIN AND INSULIN COVERAGE GIVEN AND TOLERATED WELL. TYLENOL GIVEN FOR TEMPERATURE 101.4F- PT TOLERATED WELL. NO S/S OF RESPIRATORY DISTRESS OR DISCOMFORT NOTED AT THIS TIME. WILL CONTINUE TO MONITOR.
--- NOTE | 2019-04-11 22:00 | NUR ---
PT SLEEPING IN BED. NO S/S OF RESPIRATORY DISTRESS OR DISCOMFORT NOTED AT THIS TIME. WILL CONTINUE TO MONITOR.
[2019-04-12] VITALS: BP 120/63
--- NOTE | 2019-04-12 | NUR ---
VITAL SIGNS TAKEN AND TOLERATED WELL. NO S/S OF RESPIRATORY DISTRESS OR DISCOMFORT NOTED AT THIS TIME. WILL CONTINUE TO MONITOR.
--- NOTE | 2019-04-12 02:00 | NUR ---
PT SLEEPING IN BED. NO S/S OF RESPIRATORY DISTRESS OR DISCOMFORT NOTED AT THIS TIME. WILL CONTINUE TO MONITOR.
[2019-04-12] MEDS: NACL 0.9% 1,000 ML IV SCH (02:43)
[2019-04-12 04:00] VITALS: BP 138/75
--- NOTE | 2019-04-12 04:00 | NUR ---
VITAL SIGNS TAKEN AND TOLERATED WELL. PT C/O HEADACHE- WILL MEDICATE. NO S/S OF RESPIRATORY DISTRESS OR DISCOMFORT NOTED AT THIS TIME. WILL CONTINUE TO MONITOR.
[2019-04-12] MEDS: ACETAMINOPHEN 325 MG TAB PO PRN (04:11)
--- NOTE | 2019-04-12 04:11 | NUR ---
TYLENOL GIVEN FOR 2/10 HEADACHE PAIN. PT TOLERATED WELL. NO S/S OF RESPIRATORY DISTRESS OR DISCOMFORT NOTED AT THIS TIME. WILL CONTINUE TO MONITOR.
--- NOTE | 2019-04-12 06:00 | NUR ---
BLOOD GLUCOSE 209- WILL ADMINISTER INSULIN COVERAGE. NO S/S OF RESPIRATORY DISTRESS OR DISCOMFORT NOTED AT THIS TIME. WILL CONTINUE TO MONITOR.
[2019-04-12] MEDS: glipiZIDE 10 MG TAB PO SCH (06:30)
[2019-04-12] MEDS: BLOOD GLUCOSE MONITORING 1 DEV DEV FS SCH ×2 (06:30→11:30)
[2019-04-12] MEDS: INSULIN LISPRO SLIDING SCALE 100 UNITS/ML VIAL SUBQ PRN ×2 (06:34→13:12)
--- NOTE | 2019-04-12 06:34 | NUR ---
SCHEDULED MEDICATION AND INSULIN COVERAGE GIVEN AND TOLERATED WELL. NO S/S OF RESPIRATORY DISTRESS OR DISCOMFORT NOTED AT THIS TIME. WILL CONTINUE TO MONITOR.
[2019-04-12 07:05] LABS: BASOPHILS % (AUTO) 0.3 % (0.0-2.0); EOSINOPHILS # (AUTO) 0.1 K/uL (0-0.4); EOSINOPHILS % (AUTO) 0.5 % (0.0-4.0); HEMATOCRIT 26.3 % (36-48); LYMPHOCYTES # (AUTO) 1.1 K/uL (2.5-16.5); LYMPHOCYTES % (AUTO) 10.2 % (20.5-51.1); MEAN CORPUSCULAR HEMOGLOBIN 30 pg (27-31); MEAN CORPUSCULAR HGB CONC 34 g/dL (33-37); MEAN CORPUSCULAR VOLUME 86.6 fL (80-94); MONOCYTES # (AUTO) 0.9 K/uL (0.8-1.0); MONOCYTES % (AUTO) 8.8 % (1.7-9.3); NEUTROPHILS # (AUTO) 8.4 K/uL (1.8-7.7); NEUTROPHILS % (AUTO) 80.2 % (42.2-75.2); PLATELET COUNT (AUTO) 135 K/uL (140-450); RED BLOOD CELL COUNT(AUTO) 3.04 MIL/uL (4.20-5.40); RED CELL DISTRIBUTION WIDTH 14.3 % (11.6-13.7); WHITE BLOOD COUNT (AUTO) 10.5 K/uL (4.8-10.8)
--- NOTE | 2019-04-12 07:25 | NUR ---
RECEIVED REPORT FROM THREAD MACHINE OPERATOR NURSE. PATIENT AMBULATED TO BATHROOM AND BACK TO BED WITH STEADY GAIT. NO DISTRESS NOTED. RESPIRATIONS EVEN, UNLABORED, ON ROOM AIR. DENIES ANY PAIN. AAOX4, CALM, COOPERATIVE, SKIN COLOR APPROPRIATE TO ETHNICITY, WARM TO TOUCH. SKIN INTACT. NO FEVERS REPORTED AT NIGHTTIME. HIGHEST TEMP 99.4 PER NIGHT RN REPORTED. IV SITE INTACT, PATENT, AND INFUSING IVF PER MD ORDERS. ABDOMEN SOFT, NON-DISTENDED. REVIEWED PLAN OF CARE WITH PATIENT. PATIENT VERBALIZED UNDERSTANDING. SAFETY MEASURE IN PLACE, CALL LIGHT WITHIN REACH. WILL CONTINUE TO MONITOR.
[2019-04-12 07:48] LABS: ANION GAP 14.9 (8-16); CARBON DIOXIDE 22.6 mmol/L (21-32); CREATININE 0.7 mg/dL (0.6-1.3); POTASSIUM 3.5 mmol/L (3.5-5.1)
[2019-04-12 08:00] VITALS: BP 116/59
[2019-04-12 08:00] LABS: MAGNESIUM 1.5 mg/dL (1.8-2.4); PHOSPHORUS 1.9 mg/dL (2.5-4.9)
[2019-04-12] MEDS ORDERED: MAG SULF 2000 MG/WATER PREMIX 100 ML IV SCH (09:00)
--- NOTE | 2019-04-12 09:19 | NUR ---
PATIENT LYING DOWN IN BED COMFORTABLY. NO DISTRESS NOTED. DENIES ANY PAIN. SCHEDULED MEDICATIONS DUE GIVEN. WILL CONTINUE TO MONITOR.
[2019-04-12 12:00] VITALS: BP 125/65
--- NOTE | 2019-04-12 13:13 | NUR ---
PATIENT SITTING DOWN IN BED. NO DISTRESS NOTED. SCHEDULED MEDICATIONS DUE GIVEN. WILL CONTINUE TO MONITOR.
--- NOTE | 2019-04-12 14:19 | NUR ---
DISCHARGE INSTRUCTIONS PROVIDED TO PATIENT IN PREFERRED LANGUAGE OF [place] USING CREDIT RISK ASSOCIATE PHONE #[phone]. INSTRUCTIONS ON NEW/CHANGED MEDICATIONS, DIET REGIMEN, DISEASE PROCESS/MANAGEMENT OF UTI. ANSWERED ALL OF PATIENT'S QUESTIONS REGARDING DISCHARGE. PATIENT VERBALIZED UNDERSTANDING. SON TO COME PLANT TENDER PATIENT AT 1500. WILL CONTINUE TO MONITOR.
--- NOTE | 2019-04-12 15:15 | NUR ---
PATIENT'S SON AT BEDSIDE READY TO TAKE PATIENT HOME. IV SITES REMOVED WITH MINIMAL BLOOD AND LUMEN COMPLETELY INTACT. ID BANDS REMOVED. ESCORTED PATIENT DOWN TO LOBBY VIA STEADY AMBULATION. PATIENT DISCHARGED AT THIS TIME TO HOME IN PRIVATE VEHICLE IN STABLE CONDITION.
== END 2019-04-12 15:15 | disposition home or self-care (01) | DRG 720 ==
LOC: MED 08:47 → MTU 13:26
PROVIDERS: ADMIT Internal Medicine Pulmonary Disease; ATTEND Internal Medicine Pulmonary Disease
DX: A41.9 Sepsis, unspecified organism (principal); N17.0 Acute kidney failure with tubular necrosis; I95.9 Hypotension, unspecified; E11.65 Type 2 diabetes mellitus with hyperglycemia; E87.1 Hypo-osmolality and hyponatremia; E44.1 Mild protein-calorie malnutrition; N39.0 Urinary tract infection, site not specified; E86.1 Hypovolemia; E86.0 Dehydration; E86.9 Volume depletion, unspecified; Z68.25 Body mass index [BMI] 25.0-25.9, adult
CPT/HCPCS: 36415; 36600; 71045; 76770; 80048; 80053; 81001; 82009; 82150; 82803; 82948; 83036; 83605; 83690; 83735; 84100; 84484; 84550; 85025; 87040; 87081; 87086; 87186; 94640; 96361; 96365; 96372; 97161-GP; 99291; J0696; J1644; J1815; J2405; J2543; J3475; J7030; J7060; J7613; Q0092

== ENCOUNTER 2023-12-31 19:19 | Inpatient (IN) | payer MEDICAID, OTHER ==
[~2023-12-31] VITALS: Ht 154.9 cm; Wt 57.6 kg
[~2023-12-31 19:19] MED LIST changes: -CEPH250C16 PO; +GLIP10TA12 PO; -GLIP5TAB13 PO; +INSULIN SUBQ; -METF-1022 PO; +METF-1253 PO; -TAM75 PO
[2023-12-31 19:57] VITALS: BP 125/72; PULSE 99; RESP 16; TEMP 98.4; O2SAT 98
[2023-12-31] MEDS ORDERED: NACL 0.9% 1,000 ML IV SCH (21:05)
[2023-12-31 21:40] LABS: BASOPHILS # (AUTO) 0.1 K/uL (0.00-0.22); EOSINOPHILS # (AUTO) 0.4 K/uL (0-0.4); EOSINOPHILS % (AUTO) 3.3 % (0.0-4.0); HEMATOCRIT 33.8 % (36-48); HEMOGLOBIN 11.9 g/dL (12.0-16.0); LYMPHOCYTES # (AUTO) 2.2 K/uL (2.5-16.5); LYMPHOCYTES % (AUTO) 20.8 % (20.5-51.1); MEAN CORPUSCULAR HEMOGLOBIN 31 pg (27-31); MEAN CORPUSCULAR HGB CONC 35 g/dL (33-37); MEAN CORPUSCULAR VOLUME 87.2 fL (80-94); MONOCYTES # (AUTO) 0.9 K/uL (0.8-1.0); MONOCYTES % (AUTO) 8.6 % (1.7-9.3); NEUTROPHILS % (AUTO) 66.3 % (42.2-75.2); PLATELET COUNT (AUTO) 259 K/uL (140-450); RED BLOOD CELL COUNT(AUTO) 3.88 MIL/uL (4.20-5.40); RED CELL DISTRIBUTION WIDTH 13.3 % (11.6-13.7); WHITE BLOOD COUNT (AUTO) 10.6 K/uL (4.8-10.8)
[2023-12-31] MEDS ORDERED: VANCOMYCIN PER PHARMACY MC PRN (21:45)
[2023-12-31] MEDS ORDERED: ACETAMINOPHEN 325 MG TAB PO PRN (21:45)
[2023-12-31 21:47] LABS: ANION GAP 13.6 (8-16); CALCIUM 9.1 mg/dL (8.5-10.1); CARBON DIOXIDE 25.5 mmol/L (21-32); CREATININE 0.8 mg/dL (0.6-1.3); POTASSIUM 4.1 mmol/L (3.5-5.1)
[2023-12-31 22:01] LABS: ALANINE AMINOTRANSFERASE 6 U/L (12-78); ALBUMIN 3.1 g/dL (3.4-5.0); ALKALINE PHOSPHATASE 116 U/L (50-136); ASPARTATE AMINOTRANSFERASE 8 U/L (15-37); BILIRUBIN,DIRECT 0.1 mg/dL (0.0-0.3); TOTAL BILIRUBIN 0.2 mg/dL (0.0-1.0); TOTAL PROTEIN, SERUM 7.2 g/dL (6.4-8.2)
[2023-12-31] MEDS ORDERED: cefTRIAXone 1,000 MG VIAL ONE (22:01)
[2023-12-31] MEDS ORDERED: VANCOMYCIN 1,000 MG VIAL ONE (22:01)
[2023-12-31] MEDS: NACL 0.9% 1,000 ML IV ONE (22:26)
[2023-12-31] MEDS: VANCOMYCIN 1,000 MG in DEXTROSE 5% 250 ML IV ONE (22:26)
[2024-01-01 07:20] LABS: BASOPHILS # (AUTO) 0.1 K/uL (0.00-0.22); EOSINOPHILS # (AUTO) 0.2 K/uL (0-0.4); EOSINOPHILS % (AUTO) 2.1 % (0.0-4.0); HEMATOCRIT 34.6 % (36-48); HEMOGLOBIN 12.1 g/dL (12.0-16.0); LYMPHOCYTES # (AUTO) 1.7 K/uL (2.5-16.5); LYMPHOCYTES % (AUTO) 16.4 % (20.5-51.1); MEAN CORPUSCULAR HEMOGLOBIN 31 pg (27-31); MEAN CORPUSCULAR HGB CONC 35 g/dL (33-37); MONOCYTES # (AUTO) 0.7 K/uL (0.8-1.0); MONOCYTES % (AUTO) 6.8 % (1.7-9.3); NEUTROPHILS # (AUTO) 7.4 K/uL (1.8-7.7); NEUTROPHILS % (AUTO) 73.7 % (42.2-75.2); PLATELET COUNT (AUTO) 270 K/uL (140-450); RED BLOOD CELL COUNT(AUTO) 3.93 MIL/uL (4.20-5.40); RED CELL DISTRIBUTION WIDTH 13.1 % (11.6-13.7); WHITE BLOOD COUNT (AUTO) 10.1 K/uL (4.8-10.8)
[2024-01-01 07:42] LABS: ALBUMIN 2.9 g/dL (3.4-5.0); ANION GAP 13.1 (8-16); CALCIUM 8.5 mg/dL (8.5-10.1); CARBON DIOXIDE 24.8 mmol/L (21-32); CREATININE 0.6 mg/dL (0.6-1.3); POTASSIUM 3.9 mmol/L (3.5-5.1); TOTAL BILIRUBIN 0.3 mg/dL (0.0-1.0); TOTAL PROTEIN, SERUM 6.9 g/dL (6.4-8.2)
[2024-01-01 08:20] VITALS: BP 124/71; PULSE 71; RESP 16; TEMP 98.3; O2SAT 96
[2024-01-01] MEDS: PANTOPRAZOLE 40 MG INJ VIAL IVP SCH (09:00)
[2024-01-01] MEDS: guaiFENesin 600 MG TABER PO SCH (09:18)
[2024-01-01] MEDS: VANCOMYCIN 500 MG in DEXTROSE 5% 100 ML IV SCH (10:25)
[2024-01-01 12:15] VITALS: BP 136/77; PULSE 90; RESP 18; TEMP 97.5; O2SAT 100
[2024-01-01 16:00] VITALS: BP 123/63; PULSE 95; RESP 18; TEMP 98.1; O2SAT 97
[2024-01-01] MEDS: BLOOD GLUCOSE MONITORING 1 DEV DEV FS SCH (17:29)
[2024-01-01] MEDS: INSULIN LISPRO SLIDING SCALE 100 UNITS/ML VIAL SUBQ PRN (17:33)
[2024-01-01 20:00] VITALS: BP 123/62; PULSE 95; RESP 18; RESP 21; TEMP 98.1; O2SAT 91; O2SAT 97
[2024-01-01] MEDS: ZOLPIDEM 5 MG TAB PO SCH (21:59)
[2024-01-02 04:00] VITALS: BP 99/59; PULSE 93; RESP 17; TEMP 98.3; O2SAT 97
[2024-01-02 08:00] VITALS: BP 124/71; PULSE 71; RESP 0; RESP 18; TEMP 96.9; O2SAT 96
[2024-01-02 09:58] LABS: BASOPHILS # (AUTO) 0.1 K/uL (0.00-0.22); BASOPHILS % (AUTO) 0.8 % (0.0-2.0); EOSINOPHILS # (AUTO) 0.3 K/uL (0-0.4); EOSINOPHILS % (AUTO) 3.1 % (0.0-4.0); HEMATOCRIT 38.8 % (36-48); HEMOGLOBIN 13.4 g/dL (12.0-16.0); LYMPHOCYTES # (AUTO) 1.6 K/uL (2.5-16.5); LYMPHOCYTES % (AUTO) 17.2 % (20.5-51.1); MEAN CORPUSCULAR HEMOGLOBIN 31 pg (27-31); MEAN CORPUSCULAR HGB CONC 35 g/dL (33-37); MEAN CORPUSCULAR VOLUME 88.6 fL (80-94); MONOCYTES # (AUTO) 0.8 K/uL (0.8-1.0); MONOCYTES % (AUTO) 8.8 % (1.7-9.3); NEUTROPHILS # (AUTO) 6.7 K/uL (1.8-7.7); NEUTROPHILS % (AUTO) 70.1 % (42.2-75.2); PLATELET COUNT (AUTO) 283 K/uL (140-450); RED BLOOD CELL COUNT(AUTO) 4.38 MIL/uL (4.20-5.40); WHITE BLOOD COUNT (AUTO) 9.6 K/uL (4.8-10.8)
[2024-01-02 10:15] LABS: ALBUMIN 3.4 g/dL (3.4-5.0); ANION GAP 13.2 (8-16); CALCIUM 9.8 mg/dL (8.5-10.1); CREATININE 0.8 mg/dL (0.6-1.3); POTASSIUM 4.2 mmol/L (3.5-5.1); TOTAL BILIRUBIN 0.3 mg/dL (0.0-1.0); TOTAL PROTEIN, SERUM 8.3 g/dL (6.4-8.2)
[2024-01-02 16:00] VITALS: BP 110/61; PULSE 94; RESP 18; TEMP 97.7; O2SAT 96
[2024-01-02 20:00] VITALS: RESP 0
[2024-01-02] MEDS: cefTRIAXone 1,000 MG VIAL ONE (21:54)
[2024-01-02] MEDS: SODIUM CHLORIDE 3% 4 ML SOL INH SCH (23:15)
[2024-01-02 23:19] VITALS: PULSE 91; RESP 20; O2SAT 95
[2024-01-02 23:30] VITALS: PULSE 91; O2SAT 95
[2024-01-03 04:00] VITALS: BP 109/61; PULSE 90; RESP 18; TEMP 97.9; O2SAT 97
[2024-01-03 06:51] LABS: BASOPHILS # (AUTO) 0.1 K/uL (0.00-0.22); EOSINOPHILS # (AUTO) 0.3 K/uL (0-0.4); EOSINOPHILS % (AUTO) 3.6 % (0.0-4.0); HEMATOCRIT 35.6 % (36-48); HEMOGLOBIN 12.4 g/dL (12.0-16.0); LYMPHOCYTES # (AUTO) 1.5 K/uL (2.5-16.5); LYMPHOCYTES % (AUTO) 17.3 % (20.5-51.1); MEAN CORPUSCULAR HEMOGLOBIN 31 pg (27-31); MEAN CORPUSCULAR HGB CONC 35 g/dL (33-37); MEAN CORPUSCULAR VOLUME 87.3 fL (80-94); MONOCYTES # (AUTO) 0.8 K/uL (0.8-1.0); MONOCYTES % (AUTO) 9.7 % (1.7-9.3); NEUTROPHILS # (AUTO) 5.9 K/uL (1.8-7.7); NEUTROPHILS % (AUTO) 68.4 % (42.2-75.2); PLATELET COUNT (AUTO) 268 K/uL (140-450); RED BLOOD CELL COUNT(AUTO) 4.08 MIL/uL (4.20-5.40); RED CELL DISTRIBUTION WIDTH 13.3 % (11.6-13.7); WHITE BLOOD COUNT (AUTO) 8.7 K/uL (4.8-10.8)
[2024-01-03 07:05] LABS: ANION GAP 10.2 (8-16); CALCIUM 8.6 mg/dL (8.5-10.1); CREATININE 0.7 mg/dL (0.6-1.3); POTASSIUM 4.2 mmol/L (3.5-5.1)
[2024-01-03 08:00] VITALS: BP 108/56; PULSE 103; RESP 0; RESP 18; TEMP 97.8; O2SAT 100
[2024-01-03 08:19] VITALS: PULSE 97; RESP 20; O2SAT 100; O2SAT 98
[2024-01-03 15:47] VITALS: PULSE 99; RESP 20; O2SAT 97; O2SAT 98
[2024-01-03 20:00] VITALS: BP 106/67; PULSE 98; RESP 16; RESP 20; TEMP 98.7; O2SAT 96
[2024-01-04 04:00] VITALS: BP 118/65; PULSE 100; RESP 18; TEMP 98.6; O2SAT 98
[2024-01-04 06:57] LABS: BASOPHILS # (AUTO) 0.1 K/uL (0.00-0.22); EOSINOPHILS # (AUTO) 0.3 K/uL (0-0.4); EOSINOPHILS % (AUTO) 3.6 % (0.0-4.0); HEMATOCRIT 35.2 % (36-48); HEMOGLOBIN 12.3 g/dL (12.0-16.0); LYMPHOCYTES # (AUTO) 1.6 K/uL (2.5-16.5); LYMPHOCYTES % (AUTO) 16.7 % (20.5-51.1); MEAN CORPUSCULAR HEMOGLOBIN 31 pg (27-31); MEAN CORPUSCULAR HGB CONC 35 g/dL (33-37); MEAN CORPUSCULAR VOLUME 87.5 fL (80-94); MONOCYTES # (AUTO) 0.9 K/uL (0.8-1.0); MONOCYTES % (AUTO) 9.2 % (1.7-9.3); NEUTROPHILS # (AUTO) 6.6 K/uL (1.8-7.7); NEUTROPHILS % (AUTO) 69.5 % (42.2-75.2); PLATELET COUNT (AUTO) 279 K/uL (140-450); RED BLOOD CELL COUNT(AUTO) 4.02 MIL/uL (4.20-5.40); RED CELL DISTRIBUTION WIDTH 13.2 % (11.6-13.7); WHITE BLOOD COUNT (AUTO) 9.5 K/uL (4.8-10.8)
[2024-01-04 07:12] LABS: CALCIUM 8.7 mg/dL (8.5-10.1); CARBON DIOXIDE 27.4 mmol/L (21-32); CREATININE 0.7 mg/dL (0.6-1.3); POTASSIUM 4.4 mmol/L (3.5-5.1)
[2024-01-04 08:00] VITALS: BP 111/58; PULSE 100; PULSE 101; RESP 18; TEMP 97.5; O2SAT 98
[2024-01-04 08:17] VITALS: O2SAT 98
[2024-01-04 20:00] VITALS: BP 91/55; PULSE 98; RESP 18; TEMP 98.9; O2SAT 98
[2024-01-05 04:00] VITALS: BP 94/59; PULSE 94; RESP 18; TEMP 97.9; O2SAT 100
[2024-01-05 08:00] VITALS: PULSE 100; RESP 18; TEMP 97.4; O2SAT 100
[2024-01-05 12:00] VITALS: BP 102/64; PULSE 71; RESP 18; TEMP 97.4; O2SAT 100
[2024-01-05 20:00] VITALS: BP 107/70; PULSE 100; PULSE 89; RESP 18; TEMP 97.2; O2SAT 100; O2SAT 98
[2024-01-06 04:00] VITALS: BP 99/71; PULSE 93; RESP 18; TEMP 97.4; O2SAT 99
[2024-01-06 08:00] VITALS: PULSE 95; RESP 18; TEMP 98.4; O2SAT 99
[2024-01-06 12:45] VITALS: BP 97/68; PULSE 95; RESP 18; TEMP 97.4; O2SAT 99
[2024-01-06 17:42] VITALS: O2SAT 97
[2024-01-06 20:00] VITALS: BP 108/64; PULSE 95; PULSE 97; RESP 18; TEMP 97.8; O2SAT 98; O2SAT 99
[2024-01-07 04:00] VITALS: BP 100/56; PULSE 97; RESP 15; TEMP 97.5; O2SAT 99
[2024-01-07 08:00] VITALS: BP 94/83; PULSE 86; RESP 18; TEMP 97.6; O2SAT 99
[2024-01-07 08:17] VITALS: RESP 19; TEMP 98.1; O2SAT 98
[2024-01-07 08:18] VITALS: PULSE 99; RESP 20; O2SAT 99
[2024-01-07 16:00] VITALS: BP 101/72; PULSE 83; RESP 18; TEMP 97.2; O2SAT 98
[2024-01-07 20:00] VITALS: BP 120/62; PULSE 84; PULSE 86; RESP 18; TEMP 97.3; TEMP 97.5; O2SAT 97; O2SAT 98
[2024-01-08 04:00] VITALS: BP 99/59; PULSE 86; RESP 18; TEMP 97.3; O2SAT 95
[2024-01-08 08:00] VITALS: BP 90/51; PULSE 90; RESP 18; TEMP 97.8; O2SAT 98
[2024-01-08 20:00] VITALS: BP 105/57; PULSE 84; PULSE 86; RESP 18; TEMP 97.2; O2SAT 98
[2024-01-09 07:57] LABS: BASOPHILS # (AUTO) 0.1 K/uL (0.00-0.22); BASOPHILS % (AUTO) 1.2 % (0.0-2.0); EOSINOPHILS # (AUTO) 0.2 K/uL (0-0.4); EOSINOPHILS % (AUTO) 3.1 % (0.0-4.0); HEMATOCRIT 34.1 % (36-48); LYMPHOCYTES # (AUTO) 1.4 K/uL (2.5-16.5); LYMPHOCYTES % (AUTO) 17.3 % (20.5-51.1); MEAN CORPUSCULAR HEMOGLOBIN 31 pg (27-31); MEAN CORPUSCULAR HGB CONC 35 g/dL (33-37); MEAN CORPUSCULAR VOLUME 86.9 fL (80-94); MONOCYTES # (AUTO) 0.7 K/uL (0.8-1.0); MONOCYTES % (AUTO) 8.5 % (1.7-9.3); NEUTROPHILS # (AUTO) 5.6 K/uL (1.8-7.7); NEUTROPHILS % (AUTO) 69.9 % (42.2-75.2); PLATELET COUNT (AUTO) 289 K/uL (140-450); RED BLOOD CELL COUNT(AUTO) 3.92 MIL/uL (4.20-5.40); RED CELL DISTRIBUTION WIDTH 13.1 % (11.6-13.7)
[2024-01-09 08:00] VITALS: BP 98/50; PULSE 53; PULSE 88; RESP 18; TEMP 96.8; TEMP 97.4; O2SAT 99
[2024-01-09 08:46] LABS: ALBUMIN 2.7 g/dL (3.4-5.0); ANION GAP 13.3 (8-16); CALCIUM 8.7 mg/dL (8.5-10.1); CARBON DIOXIDE 26.7 mmol/L (21-32); CREATININE 0.6 mg/dL (0.6-1.3); MAGNESIUM 1.7 mg/dL (1.8-2.4); TOTAL BILIRUBIN 0.3 mg/dL (0.0-1.0); TOTAL PROTEIN, SERUM 7.2 g/dL (6.4-8.2)
[2024-01-09] MEDS ORDERED: POTASSIUM CHLORIDE 10 MEQ TABER PO PRN (11:05)
[2024-01-09] MEDS: MAG SULF 2000 MG/WATER PREMIX 50 ML IV PRN (12:41)
[2024-01-09 16:00] VITALS: BP 95/51; PULSE 84; RESP 18; TEMP 97.2; O2SAT 99
[2024-01-09 20:00] VITALS: PULSE 88; RESP 18; TEMP 97.4; O2SAT 99
[2024-01-10] VITALS: BP 102/72; PULSE 84; RESP 18; TEMP 97.2; O2SAT 99
[2024-01-10 07:16] LABS: BASOPHILS # (AUTO) 0.1 K/uL (0.00-0.22); BASOPHILS % (AUTO) 1.2 % (0.0-2.0); EOSINOPHILS # (AUTO) 0.2 K/uL (0-0.4); EOSINOPHILS % (AUTO) 1.5 % (0.0-4.0); HEMATOCRIT 34.6 % (36-48); HEMOGLOBIN 12.1 g/dL (12.0-16.0); LYMPHOCYTES # (AUTO) 1.6 K/uL (2.5-16.5); LYMPHOCYTES % (AUTO) 15.1 % (20.5-51.1); MEAN CORPUSCULAR HEMOGLOBIN 31 pg (27-31); MEAN CORPUSCULAR HGB CONC 35 g/dL (33-37); MEAN CORPUSCULAR VOLUME 87.7 fL (80-94); MONOCYTES # (AUTO) 0.8 K/uL (0.8-1.0); MONOCYTES % (AUTO) 7.1 % (1.7-9.3); NEUTROPHILS # (AUTO) 8.1 K/uL (1.8-7.7); NEUTROPHILS % (AUTO) 75.1 % (42.2-75.2); PLATELET COUNT (AUTO) 325 K/uL (140-450); RED BLOOD CELL COUNT(AUTO) 3.95 MIL/uL (4.20-5.40); RED CELL DISTRIBUTION WIDTH 13.2 % (11.6-13.7); WHITE BLOOD COUNT (AUTO) 10.8 K/uL (4.8-10.8)
[2024-01-10 07:46] LABS: ALBUMIN 3.1 g/dL (3.4-5.0); ANION GAP 13.1 (8-16); CALCIUM 8.8 mg/dL (8.5-10.1); CREATININE 0.7 mg/dL (0.6-1.3); POTASSIUM 4.1 mmol/L (3.5-5.1); TOTAL BILIRUBIN 0.3 mg/dL (0.0-1.0); TOTAL PROTEIN, SERUM 7.7 g/dL (6.4-8.2)
[2024-01-10 08:00] VITALS: BP 95/48; PULSE 73; RESP 18; TEMP 97.7; O2SAT 99
[2024-01-10 16:00] VITALS: BP 107/61; PULSE 88; RESP 18; TEMP 97.3; O2SAT 98
[2024-01-10 20:00] VITALS: BP 104/61; PULSE 83; RESP 18; TEMP 97.8; O2SAT 98
[2024-01-10] MEDS: PYRIDOXINE 50 MG TAB PO SCH (22:44)
[2024-01-10] MEDS: ISONIAZID 100 MG TAB PO SCH (22:44)
[2024-01-10] MEDS: rifAMPin 300 MG CAP PO SCH (22:45)
[2024-01-10] MEDS: PYRAZINAMIDE 500 MG TAB PO SCH (22:45)
[2024-01-10] MEDS: ETHAMBUTOL 400 MG TAB PO SCH (22:45)
[2024-01-11 04:00] VITALS: BP 100/53; PULSE 102; RESP 18; TEMP 96.8; O2SAT 96
[2024-01-11 06:38] LABS: BASOPHILS # (AUTO) 0.1 K/uL (0.00-0.22); BASOPHILS % (AUTO) 1.1 % (0.0-2.0); EOSINOPHILS # (AUTO) 0.3 K/uL (0-0.4); HEMATOCRIT 33.4 % (36-48); HEMOGLOBIN 11.8 g/dL (12.0-16.0); LYMPHOCYTES # (AUTO) 1.6 K/uL (2.5-16.5); LYMPHOCYTES % (AUTO) 20.1 % (20.5-51.1); MEAN CORPUSCULAR HEMOGLOBIN 31 pg (27-31); MEAN CORPUSCULAR HGB CONC 35 g/dL (33-37); MEAN CORPUSCULAR VOLUME 87.4 fL (80-94); MONOCYTES # (AUTO) 0.7 K/uL (0.8-1.0); MONOCYTES % (AUTO) 8.4 % (1.7-9.3); NEUTROPHILS # (AUTO) 5.2 K/uL (1.8-7.7); NEUTROPHILS % (AUTO) 66.4 % (42.2-75.2); PLATELET COUNT (AUTO) 288 K/uL (140-450); RED BLOOD CELL COUNT(AUTO) 3.83 MIL/uL (4.20-5.40); RED CELL DISTRIBUTION WIDTH 13.5 % (11.6-13.7); WHITE BLOOD COUNT (AUTO) 7.8 K/uL (4.8-10.8)
[2024-01-11 07:15] LABS: ALBUMIN 2.8 g/dL (3.4-5.0); ANION GAP 11.2 (8-16); CALCIUM 8.9 mg/dL (8.5-10.1); CREATININE 0.6 mg/dL (0.6-1.3); MAGNESIUM 1.6 mg/dL (1.8-2.4); POTASSIUM 4.2 mmol/L (3.5-5.1); TOTAL BILIRUBIN 0.4 mg/dL (0.0-1.0); TOTAL PROTEIN, SERUM 7.2 g/dL (6.4-8.2)
[2024-01-11 08:00] VITALS: BP 92/53; PULSE 88; PULSE 89; RESP 16; RESP 18; TEMP 96.7; O2SAT 97; O2SAT 98
[2024-01-11] MEDS: ETHAMBUTOL 400 MG TAB PO SCH (10:29)
[2024-01-11] MEDS: rifAMPin 300 MG CAP PO SCH (10:30)
[2024-01-11] MEDS: PYRAZINAMIDE 500 MG TAB PO SCH (10:30)
[2024-01-11] MEDS: ISONIAZID 100 MG TAB PO SCH (10:31)
[2024-01-11] MEDS: PYRIDOXINE 50 MG TAB PO SCH (10:31)
[2024-01-11 16:00] VITALS: BP 107/55; PULSE 96; RESP 16; TEMP 97.6; O2SAT 99
[2024-01-11 20:00] VITALS: PULSE 84; RESP 16; TEMP 97.8; O2SAT 98
[2024-01-11] MEDS: INSULIN LANTUS 100 UNITS/ML 10 ML VIAL SUBQ SCH (21:40)
[2024-01-12 04:00] VITALS: BP 96/57; PULSE 91; RESP 16; TEMP 98.5; O2SAT 98
[2024-01-12 08:00] VITALS: BP 96/52; PULSE 87; RESP 18; RESP 20; TEMP 97.5; O2SAT 97; O2SAT 99
[2024-01-12 16:00] VITALS: BP 114/61; PULSE 89; RESP 20; TEMP 97.9; O2SAT 97
[2024-01-12 20:00] VITALS: BP 101/56; PULSE 90; RESP 18; TEMP 97.7; O2SAT 99
[2024-01-13 04:00] VITALS: BP 94/57; PULSE 85; RESP 18; TEMP 97.6; O2SAT 96
[2024-01-13 07:28] LABS: BASOPHILS # (AUTO) 0.1 K/uL (0.00-0.22); BASOPHILS % (AUTO) 1.4 % (0.0-2.0); EOSINOPHILS # (AUTO) 0.3 K/uL (0-0.4); HEMATOCRIT 34.5 % (36-48); LYMPHOCYTES # (AUTO) 1.6 K/uL (2.5-16.5); MEAN CORPUSCULAR HEMOGLOBIN 31 pg (27-31); MEAN CORPUSCULAR HGB CONC 35 g/dL (33-37); MONOCYTES # (AUTO) 0.8 K/uL (0.8-1.0); MONOCYTES % (AUTO) 8.6 % (1.7-9.3); NEUTROPHILS # (AUTO) 5.9 K/uL (1.8-7.7); PLATELET COUNT (AUTO) 306 K/uL (140-450); RED BLOOD CELL COUNT(AUTO) 3.91 MIL/uL (4.20-5.40); RED CELL DISTRIBUTION WIDTH 13.1 % (11.6-13.7); WHITE BLOOD COUNT (AUTO) 8.7 K/uL (4.8-10.8)
[2024-01-13 07:45] LABS: ALBUMIN 2.9 g/dL (3.4-5.0); ANION GAP 12.3 (8-16); CALCIUM 9.1 mg/dL (8.5-10.1); CARBON DIOXIDE 27.7 mmol/L (21-32); CREATININE 0.7 mg/dL (0.6-1.3); MAGNESIUM 1.6 mg/dL (1.8-2.4); TOTAL BILIRUBIN 0.6 mg/dL (0.0-1.0); TOTAL PROTEIN, SERUM 7.5 g/dL (6.4-8.2)
[2024-01-13 08:00] VITALS: BP 98/58; PULSE 88; RESP 18; TEMP 97.2; O2SAT 98
[2024-01-13 16:00] VITALS: BP 106/59; PULSE 84; RESP 18; TEMP 97.3; O2SAT 99
[2024-01-13 20:00] VITALS: BP 129/66; PULSE 87; RESP 18; TEMP 97.8; O2SAT 96
[2024-01-14] VITALS (7 sets, daily range): BP systolic 100–123; BP diastolic 56–87; PULSE 75–86; RESP 18–20; TEMP 97.5–98.5; O2SAT 95–99
[2024-01-15 07:08] LABS: HEPATITIS A ANTIBODY IGM Negative (Negative); HEPATITIS B CORE AB TOTAL Negative (Negative); HEPATITIS B CORE, IGM Negative (Negative); HEPATITIS B SURFACE ANTIBODY Reactive (.); HEPATITIS B SURFACE ANTIGEN Negative (Negative); HEPATITIS C VIRUS ANTIBODY Non Reactive (Non Reactive)
[2024-01-15 07:23] LABS: BASOPHILS # (AUTO) 0.1 K/uL (0.00-0.22); BASOPHILS % (AUTO) 1.3 % (0.0-2.0); EOSINOPHILS # (AUTO) 0.4 K/uL (0-0.4); HEMATOCRIT 34.8 % (36-48); HEMOGLOBIN 12.4 g/dL (12.0-16.0); LYMPHOCYTES # (AUTO) 1.5 K/uL (2.5-16.5); LYMPHOCYTES % (AUTO) 19.7 % (20.5-51.1); MEAN CORPUSCULAR HEMOGLOBIN 31 pg (27-31); MEAN CORPUSCULAR HGB CONC 36 g/dL (33-37); MEAN CORPUSCULAR VOLUME 87.9 fL (80-94); MONOCYTES # (AUTO) 0.6 K/uL (0.8-1.0); PLATELET COUNT (AUTO) 291 K/uL (140-450); RED BLOOD CELL COUNT(AUTO) 3.96 MIL/uL (4.20-5.40); RED CELL DISTRIBUTION WIDTH 13.2 % (11.6-13.7); WHITE BLOOD COUNT (AUTO) 7.6 K/uL (4.8-10.8)
[2024-01-15 07:52] LABS: ALBUMIN 2.9 g/dL (3.4-5.0); ANION GAP 11.1 (8-16); CALCIUM 9.3 mg/dL (8.5-10.1); CARBON DIOXIDE 31.1 mmol/L (21-32); CREATININE 0.8 mg/dL (0.6-1.3); MAGNESIUM 1.6 mg/dL (1.8-2.4); POTASSIUM 4.2 mmol/L (3.5-5.1); TOTAL BILIRUBIN 0.5 mg/dL (0.0-1.0); TOTAL PROTEIN, SERUM 7.7 g/dL (6.4-8.2)
[2024-01-15 08:00] VITALS: BP 125/68; PULSE 78; RESP 19; TEMP 97.1; O2SAT 98
[2024-01-15 08:30] VITALS: RESP 20; O2SAT 99
[2024-01-15 08:35] VITALS: TEMP 98.6
[2024-01-15 08:36] VITALS: PULSE 86; RESP 20; O2SAT 98
[2024-01-15 12:50] LABS: HEPATITIS A ANTIBODY TOTAL Positive (Negative)
[2024-01-15] MEDS ORDERED: ISO100 PO (14:35)
[2024-01-15] MEDS ORDERED: MUC600 PO (14:35)
[2024-01-15] MEDS ORDERED: PYRI50TA33 PO (14:35)
[2024-01-15] MEDS ORDERED: RIFA300C84 PO (14:35)
[2024-01-15] MEDS ORDERED: MYA400 PO (14:35)
[2024-01-15] MEDS ORDERED: [UNRECOGNIZED DRUG - CODE] PO (14:35)
[2024-01-15 16:00] VITALS: BP 115/73; PULSE 85; RESP 20; TEMP 98.1; O2SAT 98
[2024-01-15 20:00] VITALS: BP 99/51; PULSE 84; RESP 16; TEMP 97.5; O2SAT 95
[2024-01-16 08:00] VITALS: BP 105/50; PULSE 85; RESP 18; TEMP 96.8; O2SAT 98
[2024-01-16 08:10] VITALS: RESP 19; O2SAT 99
[2024-01-16 08:11] VITALS: TEMP 98.1
[2024-01-16 08:12] VITALS: PULSE 78; RESP 19; O2SAT 99
[2024-01-16 16:00] VITALS: BP 105/52; PULSE 87; RESP 18; TEMP 97.1; O2SAT 98
[2024-01-16 20:00] VITALS: PULSE 81; RESP 19; TEMP 97.8; O2SAT 98
[2024-01-17] VITALS: BP 100/56; PULSE 81; RESP 20; TEMP 97.8; O2SAT 98
[2024-01-17 07:08] LABS: BASOPHILS # (AUTO) 0.1 K/uL (0.00-0.22); BASOPHILS % (AUTO) 1.4 % (0.0-2.0); EOSINOPHILS # (AUTO) 0.4 K/uL (0-0.4); EOSINOPHILS % (AUTO) 4.1 % (0.0-4.0); HEMATOCRIT 35.4 % (36-48); HEMOGLOBIN 12.4 g/dL (12.0-16.0); LYMPHOCYTES # (AUTO) 1.6 K/uL (2.5-16.5); MEAN CORPUSCULAR HEMOGLOBIN 31 pg (27-31); MEAN CORPUSCULAR HGB CONC 35 g/dL (33-37); MEAN CORPUSCULAR VOLUME 88.1 fL (80-94); MONOCYTES # (AUTO) 0.5 K/uL (0.8-1.0); MONOCYTES % (AUTO) 4.8 % (1.7-9.3); NEUTROPHILS # (AUTO) 7.7 K/uL (1.8-7.7); NEUTROPHILS % (AUTO) 74.7 % (42.2-75.2); PLATELET COUNT (AUTO) 274 K/uL (140-450); RED BLOOD CELL COUNT(AUTO) 4.02 MIL/uL (4.20-5.40); RED CELL DISTRIBUTION WIDTH 13.1 % (11.6-13.7); WHITE BLOOD COUNT (AUTO) 10.3 K/uL (4.8-10.8)
[2024-01-17 07:52] LABS: ALBUMIN 2.9 g/dL (3.4-5.0); ANION GAP 12.9 (8-16); CALCIUM 9.1 mg/dL (8.5-10.1); CARBON DIOXIDE 28.2 mmol/L (21-32); CREATININE 0.8 mg/dL (0.6-1.3); MAGNESIUM 1.6 mg/dL (1.8-2.4); POTASSIUM 4.1 mmol/L (3.5-5.1); TOTAL BILIRUBIN 0.3 mg/dL (0.0-1.0); TOTAL PROTEIN, SERUM 7.6 g/dL (6.4-8.2)
[2024-01-17 08:00] VITALS: BP 106/62; PULSE 87; RESP 18; TEMP 97.7; O2SAT 98
[2024-01-17 16:00] VITALS: BP 99/59; PULSE 69; RESP 18; TEMP 97.5; O2SAT 100
[2024-01-17 20:00] VITALS: PULSE 65; RESP 18; TEMP 100.2; O2SAT 94; O2SAT 99
[2024-01-17] MEDS: PYRAZINAMIDE 500 MG TAB PO ONE (22:57)
[2024-01-17] MEDS: ETHAMBUTOL 400 MG TAB PO ONE (22:57)
[2024-01-17] MEDS: rifAMPin 300 MG CAP PO ONE (22:57)
[2024-01-17] MEDS: rifAMPin 300 MG CAP PO SCH (23:20)
[2024-01-18] VITALS: BP 99/59; PULSE 69; RESP 18; TEMP 97.5; O2SAT 94
[2024-01-18 04:00] VITALS: BP 99/52; PULSE 88; RESP 19; TEMP 96.4; O2SAT 98
[2024-01-18 08:00] VITALS: PULSE 69; RESP 18; TEMP 97.5; O2SAT 100
[2024-01-18] MEDS: PYRAZINAMIDE 500 MG TAB PO SCH (09:00)
[2024-01-18] MEDS ORDERED: rifAMPin 300 MG CAP PO SCH (09:00)
[2024-01-18] MEDS: ETHAMBUTOL 400 MG TAB PO SCH (11:23)
[2024-01-18 20:00] VITALS: BP 116/58; PULSE 76; RESP 16; RESP 18; TEMP 97; O2SAT 98
[2024-01-19 04:00] VITALS: BP 100/56; PULSE 80; RESP 18; TEMP 98; O2SAT 97
[2024-01-19 07:40] LABS: ALBUMIN 2.7 g/dL (3.4-5.0); CALCIUM 8.7 mg/dL (8.5-10.1); CREATININE 0.6 mg/dL (0.6-1.3); MAGNESIUM 1.7 mg/dL (1.8-2.4); TOTAL BILIRUBIN 0.3 mg/dL (0.0-1.0); TOTAL PROTEIN, SERUM 7.1 g/dL (6.4-8.2)
[2024-01-19 08:00] VITALS: PULSE 84; RESP 18; TEMP 96.5; O2SAT 94
[2024-01-19 09:12] LABS: BASOPHILS # (AUTO) 0.1 K/uL (0.00-0.22); EOSINOPHILS # (AUTO) 0.4 K/uL (0-0.4); EOSINOPHILS % (AUTO) 6.7 % (0.0-4.0); HEMATOCRIT 33.7 % (36-48); HEMOGLOBIN 11.8 g/dL (12.0-16.0); LYMPHOCYTES # (AUTO) 1.3 K/uL (2.5-16.5); LYMPHOCYTES % (AUTO) 22.7 % (20.5-51.1); MEAN CORPUSCULAR HEMOGLOBIN 31 pg (27-31); MEAN CORPUSCULAR HGB CONC 35 g/dL (33-37); MEAN CORPUSCULAR VOLUME 87.2 fL (80-94); MONOCYTES # (AUTO) 0.5 K/uL (0.8-1.0); MONOCYTES % (AUTO) 8.5 % (1.7-9.3); NEUTROPHILS # (AUTO) 3.5 K/uL (1.8-7.7); NEUTROPHILS % (AUTO) 60.1 % (42.2-75.2); PLATELET COUNT (AUTO) 251 K/uL (140-450); RED BLOOD CELL COUNT(AUTO) 3.86 MIL/uL (4.20-5.40); RED CELL DISTRIBUTION WIDTH 13.1 % (11.6-13.7); WHITE BLOOD COUNT (AUTO) 5.9 K/uL (4.8-10.8)
[2024-01-19 12:00] VITALS: BP 108/60; PULSE 84; RESP 18; TEMP 97.2; O2SAT 94
[2024-01-19 20:00] VITALS: BP 103/79; PULSE 85; RESP 18; TEMP 96.5; TEMP 97.3; O2SAT 99
[2024-01-20 04:00] VITALS: BP 99/57; PULSE 81; RESP 18; TEMP 97.5; O2SAT 98
[2024-01-20 08:00] VITALS: PULSE 89; RESP 18; TEMP 97.1; O2SAT 100
[2024-01-20 16:00] VITALS: BP 95/51; PULSE 86; RESP 18; TEMP 98.7; O2SAT 98
[2024-01-20 20:00] VITALS: BP 101/75; PULSE 83; RESP 18; TEMP 97.6; O2SAT 100; O2SAT 97
[2024-01-21 04:00] VITALS: BP 111/51; PULSE 86; RESP 18; TEMP 97.7; O2SAT 97
[2024-01-21 08:00] VITALS: BP 111/54; PULSE 88; RESP 14; TEMP 96.7; O2SAT 99
[2024-01-21] MEDS: PANTOPRAZOLE 40 MG TABEC PO SCH (10:21)
[2024-01-21] MEDS: PANTOPRAZOLE 40 MG TABEC PO ONE (10:25)
[2024-01-21 10:56] VITALS: PULSE 88; RESP 14; O2SAT 99
[2024-01-21 16:00] VITALS: BP 104/56; PULSE 89; RESP 16; TEMP 97.3; O2SAT 100
[2024-01-21 20:00] VITALS: PULSE 70; RESP 18; TEMP 98.4; O2SAT 98
[2024-01-22] VITALS: BP 100/61; PULSE 70; RESP 18; TEMP 98.1; O2SAT 98
[2024-01-22 08:00] VITALS: BP 91/55; PULSE 84; RESP 15; TEMP 97.2; O2SAT 98
[2024-01-22 09:40] VITALS: PULSE 84; RESP 15; O2SAT 98
[2024-01-22 16:00] VITALS: BP 98/55; PULSE 78; RESP 18; TEMP 98.4; O2SAT 98
[2024-01-22 20:00] VITALS: PULSE 85; RESP 18; TEMP 97.3; O2SAT 97
[2024-01-23] VITALS: BP 126/66; PULSE 79; RESP 16; TEMP 96.9; O2SAT 93
[2024-01-23 08:00] VITALS: BP 120/59; PULSE 82; RESP 18; TEMP 97.2; O2SAT 100
[2024-01-23 15:10] VITALS: O2SAT 97
[2024-01-23 16:00] VITALS: BP 131/74; PULSE 87; RESP 18; TEMP 97.2; O2SAT 99
[2024-01-23 20:00] VITALS: BP 110/59; PULSE 84; RESP 18; TEMP 97.1; O2SAT 97
[2024-01-24 04:00] VITALS: BP 102/59; PULSE 82; RESP 18; TEMP 97.8; O2SAT 98
[2024-01-24] MEDS ORDERED: CLAR500T14 PO (07:20)
[2024-01-24 07:30] VITALS: BP 100/62; PULSE 68; RESP 18; TEMP 98.2
[2024-01-24] MEDS ORDERED: CLARITHROMYCIN 500 MG TAB PO SCH (09:00)
== END 2024-01-24 04:00 | disposition home or self-care (01) | DRG 137 ==
LOC: MED 19:19 → MMU 21:56 → MTU 21:56
PROVIDERS: ADMIT Student in an Organized Health Care Education/Training Program; ATTEND Student in an Organized Health Care Education/Training Program
DX: A15.0 Tuberculosis of lung (principal); R65.10 Systemic inflammatory response syndrome (SIRS) of non-infectious origin without acute organ dysfunction; E44.0 Moderate protein-calorie malnutrition; R04.2 Hemoptysis; Z20.822 Contact with and (suspected) exposure to COVID-19; J18.9 Pneumonia, unspecified organism; E11.9 Type 2 diabetes mellitus without complications; Z79.4 Long term (current) use of insulin; Z79.84 Long term (current) use of oral hypoglycemic drugs; Z68.24 Body mass index [BMI] 24.0-24.9, adult
CPT/HCPCS: 36415; 71045; 71260; 80048; 80053; 80076; 82948; 83605; 83735; 84484; 85025; 86704; 86706; 86708; 86709; 86803; 87040; 87070; 87081; 87116; 87190; 87205; 87206; 87340; 89220; 93005; 94640; 96374; 96375; 99291; C9113; J0696; J1815; J3370; J3475; J7060; Q9967